=== PATIENT | female | born 1990 | race Caucasian/White ===

== ENCOUNTER 2017-01-04 21:43 | Emergency (ER) | payer OTHER ==
[~2017-01-04 21:43] MED LIST: ACET65TA OR; IBUP400T OR
[2017-01-04 22:34] LABS: MEAN CORPUSCULAR HEMOGLOBIN 32.4 pg (27.0-33.0); MEAN CORPUSCULAR HGB CONC 35.3 g/dl (32.0-36.5); MEAN CORPUSCULAR VOLUME 91.8 fl (80.0-96.0); RED CELL DISTRIBUTION WIDTH 14.1 % (11.5-14.5); WHITE BLOOD COUNT 7.1 K/mm3 (4.0-10.0)
[2017-01-04 22:36] LABS: CONTROL LINE INT CTR LINE PRESENT; METHADONE URINE NEGATIVE (NEGATIVE); TRICYCLIC ANTIDEPRESS URINE NEGATIVE (NEGATIVE)
[2017-01-04 22:41] LABS: CONTROL LINE HCG INT CTR LINE PRESENT
[2017-01-04 22:58] LABS: ALBUMIN 4.6 GM/DL (3.2-5.2); ALBUMIN/GLOBULIN RATIO 1.12 (1.00-1.93); ALKALINE PHOSPHATASE 72 U/L (45-117); ALT/SGPT 94 U/L (12-78); ANION GAP 13 MEQ/L (8-16); AST/SGOT 86 U/L (15-37); BILIRUBIN,DIRECT 0.3 MG/DL (0.0-0.2); BILIRUBIN,TOTAL 0.9 MG/DL (0.2-1.0); BLOOD UREA NITROGEN 9 MG/DL (7-18); CALCIUM LEVEL 8.3 MG/DL (8.5-10.1); CARBON DIOXIDE LEVEL 24 MEQ/L (21-32); CHLORIDE LEVEL 105 MEQ/L (98-107); CREATININE FOR GFR 0.71 MG/DL (0.55-1.02); GLOMERULAR FILTRATION RATE > 60.0 (>60); GLUCOSE, FASTING 88 MG/DL (70-105); SODIUM LEVEL 142 MEQ/L (136-145); TOTAL PROTEIN 8.7 GM/DL (6.4-8.2)
[2017-01-05] MEDS ORDERED: ONDANSETRON 4 MG ORAL DISINTEGRATING TAB (S0181) As Ordered ONE (00:24)
--- NOTE | 2017-01-05 00:42 | EDDOCDS ---
Nurse's Notes [facility] Name: Freda Moseley Age: 26 yrs Sex: Female : 1990 Arrival Date: 01/04/2017 Time: 21:43 Bed 31 Private MD: NO PRIMARY PHYSICIAN, . Diagnosis: Alcohol abuse with intoxication;Cannabis abuse Presentation: 01/04 21:50 Presenting complaint: Patient states: I'm here because I am drunk and I'm and alcoholic dsf and have lots of mental issues she wants us to detox then go up to mental health unit. pt denies SI or HI. Pt laughing and appears to be under the influence. pt states "you guys have the 72 hour hold use it cause I want to get better". Mental Health Triage Level: Not applicable. Adult Sepsis Screening: The patient does not have new or worsening altered mentation. Patient's respiratory rate is less than 22. Systolic blood pressure is greater than 100. Patient has a qSOFA score of 0- Negative Sepsis Screen. Suicide/Homicide risk assessment- the patient denies having any suicidal and/or homicidal ideations and does not present with any other emotional, behavioral or mental health complaints. Status: Patient is not a donor services technician or dependent. Transition of care: patient was not received from another setting of care. 21:50 Acuity: MARCIA Level 4 dsf 21:50 Method Of Arrival: Walkin/Carried/Asstd dsf Triage Assessment: 21:59 General: Appears in no apparent distress, Behavior is agitated, Smells of alcohol. dsf Pain: Denies pain. HIV screening NA for this visit Offered previously. [employer] TENDER: 21:59 LMP 12/14/2016 dsf Historical: - Allergies: nuvox (Hives); - Home Meds: 1. Seroquel 300 mg oral tab 1 tab 2 times per day (Last dose: Unknown) 2. Seroquel 200 mg Oral tab 1 tab once daily (Last dose: Unknown) 3. clonazepam 1 mg Oral tab 1 tab 3 times per day (Last dose: Unknown) - PMHx: Hepatitis C; IV drug use; Depression; Panic Attacks; - PSHx: cyst removed rt inner arm; Appendectomy; wisdom teeth; Tonsillectomy; Adenoidectomy; - The history from nurses notes was reviewed: but there are no nursing notes, or only partial notes available at the time of my charting. - Social history: Smoking status: Patient uses tobacco products, current every day smoker. Patient uses alcohol on a daily basis. 1 L hard liquor daily or 4 tall beers daily . No barriers to communication noted, The patient speaks fluent Slovenian, Speaks appropriately for age. - Hospitalizations: : No recent hospitalization is reported. - : The pt / caregiver states he / she is not on anticoagulants. Home medication list is obtained from friend. - Immunization history:: All immunizations up-to-date. - Exposure Risk Screening:: None identified. - Family history: Not pertinent. - Social history:: the patient smokes cigarettes the patient drinks alcohol, including recently, regularly to excess, the patient uses illicit drugs, including marijuana, opiates. Screenin/28 00:00 Screening information is obtained from the patient. Fall risk: No risks identified. rw1 Assistance ADL's: requires no assistance with activities of daily living. Abuse/DV Screen: The patient / caregiver reports he/she is: not in a situation that causes fear, pain or injury. Nutritional screening: No deficits noted. Advance Directives: Currently, there is no health care proxy. home support is adequate. Assessment: 01/04 21:59 General: see triage assessment. rw1 22:59 General: Appears in no apparent distress, comfortable, Behavior is appropriate for age, rw1 cooperative, pleasant. Pain: Denies pain. Neurological: Level of Consciousness is awake, alert, obeys commands, Oriented to person, place, time. Respiratory: Airway is patent Respiratory effort is even, unlabored. Derm: Skin is pink, warm & dry. normal. 01/05 00:00 Reassessment: Patient appears in no apparent distress at this time. Patient denies pain rw1 at this time. Patient states feeling better. Patient states symptoms have improved. 00:39 Reassessment: Patient appears in no apparent distress at this time. Patient denies pain rw1 at this time. Social Work Consult: 00:13 Social Work Note: PT brought to ED by her roommate and boyfriend. 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 PT first began abusing alcohol age 12. PT currently denies SI/HI or hallucinations and her roommate and her boyfriend are very supportive. PT states she does not need IMHU care but perhaps detox and she basically does not know where to go for care. Referral information provided and reviewed. Vital Signs: 01/04 21:46 BP 132 / 98; Pulse 105; Resp 19; Temp 96.7(T); Pulse Ox 98% on R/A; Weight 58.97 kg lr2 (R); Height 5 ft. 1 in. (154.94 cm); Pain 0/10; 01/05 00:39 BP 120 / 83; Pulse 89; Resp 18; Temp 97.6(O); Pulse Ox 96% on R/A; Pain 0/10; rw1 01/04 21:46 Body Mass Index 24.56 (58.97 kg, 154.94 cm) lr2 Vitals: 01/04 21:46 Log In Time: January 04, 2017 at 21:43. lr2 21:46 RN notified that patient meets Red Flag criteria. lr2 ED Course: 21:45 Patient visited by Luisa Avilez. lr2 21:45 Patient moved to Waiting lr2 21:47 NO PRIMARY PHYSICIAN, . is Private Physician. lr2 21:47 Patient moved to Pre RCE lr2 21:47 Patient moved to 31 cz 21:48 Chuck Medina MD is Attending Physician. pc 21:53 Triage Initiated dsf 21:58 Patient visited by Chuck Medina MD. pc 22:03 Brendan Sandoval LPN is Primary Nurse. rw1 22:26 Patient visited by Brendan Sandoval LPN. rw1 22:40 Patient visited by Donna Gillette PCA. werner 22:58 Patient visited by Donna Gillette PCA. werner 23:22 Patient visited by Donna Gillette PCA. werner 23:38 Patient visited by Donna Gillette PCA. werner 01/05 00:00 Patient visited by Brendan Sandoval LPN. rw1 00:00 The patient / caregiver is instructed regarding the plan of care and ED course. rw1 00:00 No IV's were initiated during this patient's visit. No procedures done that require rw1 assistance. 00:14 Referral list, As provided by PFS is Referral Physician. pc Administered Medications: 00:39 Drug: Ondansetron ODT 4 mg [ondansetron 4 mg disintegrating tablet (1 tabs)] Route: PO; rw1 00:39 Follow up: Response: Pt left department before re-evaluation is appropriate rw1 Order Results: Lab Order: Acetaminophen Level; SPEC'M 01/04/17 22:19 Test: ACETAMINOPHEN LEVEL; Value: < 2.0; Range: 10.0-30.0; Abnormal: Below low normal; Units: UG/ML; Status: F Lab Order: Basic Metabolic Profile; SPEC'M 01/04/17 22:19 Test: GLUCOSE, FASTING; Value: 88; Range: 70-105; Units: MG/DL; Status: F Test: BLOOD UREA NITROGEN; Value: 9; Range: 7-18; Units: MG/DL; Status: F Test: CREATININE FOR GFR; Value: 0.71; Range: 0.55-1.02; Units: MG/DL; Status: F Test: SODIUM LEVEL; Range: 136-145; Units: MEQ/L; Status: I Test: POTASSIUM SERUM; Range: 3.5-5.1; Units: MEQ/L; Status: I Test: CHLORIDE LEVEL; Range: 98-107; Units: MEQ/L; Status: I Test: CARBON DIOXIDE LEVEL; Range: 21-32; Units: MEQ/L; Status: I Test: ANION GAP; Range: 8-16; Units: MEQ/L; Status: I Test: CALCIUM LEVEL; Range: 8.5-10.1; Units: MG/DL; Status: I Test: GLOMERULAR FILTRATION RATE; Value: > 60.0; Range: >60; Status: F Test: SODIUM LEVEL; Value: 142; Range: 136-145; Units: MEQ/L; Status: F Test: POTASSIUM SERUM; Value: 4.0; Range: 3.5-5.1; Units: MEQ/L; Status: F Test: CHLORIDE LEVEL; Value: 105; Range: 98-107; Units: MEQ/L; Status: F Test: CARBON DIOXIDE LEVEL; Value: 24; Range: 21-32; Units: MEQ/L; Status: F Test: ANION GAP; Value: 13; Range: 8-16; Units: MEQ/L; Status: F Test: CALCIUM LEVEL; Value: 8.3; Range: 8.5-10.1; Abnormal: Below low normal; Units: MG/DL; Status: F Test Note: ; Units are mL/min/1.73 m2 Chronic Kidney Disease Staging per NKF: Stage I & II GFR >=60 Normal to Mildly Decreased Stage III GFR 30-59 Moderately Decreased Stage IV GFR 15-29 Severely Decreased Stage V GFR <15 Very Little GFR Left ESRD GFR <15 on [facility] Lab Order: Complete Blood Count; SPEC'M 01/04/17 22:19 Test: WHITE BLOOD COUNT; Value: 7.1; Range: 4.0-10.0; Units: K/mm3; Status: F Test: RED BLOOD COUNT; Value: 4.75; Range: 4.00-5.40; Units: M/mm3; Status: F Test: HEMOGLOBIN; Value: 15.4; Range: 12.0-16.0; Units: g/dl; Status: F Test: HEMATOCRIT; Value: 43.6; Range: 36.0-47.0; Units: %; Status: F Test: MEAN CORPUSCULAR VOLUME; Value: 91.8; Range: 80.0-96.0; Units: fl; Status: F Test: MEAN CORPUSCULAR HEMOGLOBIN; Value: 32.4; Range: 27.0-33.0; Units: pg; Status: F Test: MEAN CORPUSCULAR HGB CONC; Value: 35.3; Range: 32.0-36.5; Units: g/dl; Status: F Test: RED CELL DISTRIBUTION WIDTH; Value: 14.1; Range: 11.5-14.5; Units: %; Status: F Test: PLATELET COUNT, AUTOMATED; Value: 124; Range: 150-450; Abnormal: Below low normal; Units: k/mm3; Status: F Lab Order: Drug Eval Toxicology ED Only; SPEC'M 01/04/17 22:19 Test: AMPHETAMINES LEVEL URINE; Value: NEGATIVE; Range: NEGATIVE; Status: F Test: BARBITURATES URINE; Value: NEGATIVE; Range: NEGATIVE; Status: F Test: BENZODIAZEPINES URINE; Value: NEGATIVE; Range: NEGATIVE; Status: F Test: CANNABINOIDS URINE; Value: POSITIVE; Range: NEGATIVE; Abnormal: Above high normal; Status: F Test: COCAINE METABOLITE URINE; Value: NEGATIVE; Range: NEGATIVE; Status: F Test: METHADONE URINE; Value: NEGATIVE; Range: NEGATIVE; Status: F Test: OPIATES URINE; Value: NEGATIVE; Range: NEGATIVE; Status: F Test: TRICYCLIC ANTIDEPRESS URINE; Value: NEGATIVE; Range: NEGATIVE; Status: F Test Note: ; FALSE POSITIVE RESULTS CAN BE CAUSED BY THE USE OF PANTOPRAZOLE (PROTONIX). Lab Order: Ethyl Alcohol (ethanol); SPEC' 01/04/17 22:19 Test: ETHYL ALCOHOL (ETHANOL); Value: 0.348; Range: 0.000-0.010; Abnormal: Above high normal; Units: %; Status: F Lab Order: HCG,Serum Qualitative; SPEC' 01/04/17 22:19 Test: HCG, SERUM QUALITATIVE; Value: NEGATIVE; Range: NEGATIVE; Status: F Lab Order: Liver Profile; [facility]' 01/04/17 22:19 Test: AST/SGOT; Value: 86; Range: 15-37; Abnormal: Above high normal; Units: U/L; Status: F Test: ALT/SGPT; Value: 94; Range: 12-78; Abnormal: Above high normal; Units: U/L; Status: F Test: ALKALINE PHOSPHATASE; Value: 72; Range: 45-117; Units: U/L; Status: F Test: BILIRUBIN,TOTAL; Value: 0.9; Range: 0.2-1.0; Units: MG/DL; Status: F Test: BILIRUBIN,DIRECT; Value: 0.3; Range: 0.0-0.2; Abnormal: Above high normal; Units: MG/DL; Status: F Test: TOTAL PROTEIN; Value: 8.7; Range: 6.4-8.2; Abnormal: Above high normal; Units: GM/DL; Status: F Test: ALBUMIN; Value: 4.6; Range: 3.2-5.2; Units: GM/DL; Status: F Test: ALBUMIN/GLOBULIN RATIO; Value: 1.12; Range: 1.00-1.93; Status: F Lab Order: Salicylate Level; SPEC' 01/04/17 22:19 Test: SALICYLATE LEVEL; Value: 3.6; Range: 5.0-30.0; Abnormal: Below low normal; Units: MG/DL; Status: F Lab Order: Thyroid Stimulating Hormone; SPEC' 01/04/17 22:19 Test: THYROID STIMULATING HORMONE; Value: 0.907; Range: 0.358-3.740; Units: uIU/ML; Status: F Outcome: 00:00 No special radiology studies were completed. rw1 00:14 Discharge ordered by Provider. 00:39 Discharge Assessment: Patient awake, alert and oriented x 3. No cognitive and/or rw1 functional deficits noted. Patient verbalized understanding of disposition instructions. patient administered narcotics - no. The following High Risk Discharge criteria are identified: Yes, Pt was d/c'd with family home to follow up outpatient.. Condition: stable. Property sent home with patient. 00:42 Patient left the ED. rw1 Signatures: Chuck Medina MD MD pc Zecher, Calvin, RN RN Brendan Lilly LPN LPN rw1 Ivory Chun, PAULO PSA Donan Hendrickson, Tiffani Jay,RN RN Luisa Dasilva lr2 HORACIO
--- NOTE | 2017-01-05 00:42 | EDDOCDS ---
Physician Documentation [facility] Name: Freda Moseley Age: 26 yrs Sex: Female : 1990 Arrival Date: 01/04/2017 Time: 21:43 Bed 31 Private MD: NO PRIMARY PHYSICIAN, . Disposition: 01/05 00:13 Critical Care: Critical care not applicable. pc Disposition: 01/05/17 00:14 Discharged to Home/Self Care. Impression: Alcohol abuse with intoxication, Cannabis abuse. - Condition is Stable. - Discharge Instructions: Alcohol Intoxication. - Medication Reconciliation, Local Pharmacy Hours form. - Follow up: Referral list, As provided by PFS; When: Call to arrange an appointment; Reason: To establish care. - Problem is chronic. - Symptoms are unchanged. HPI: 01/04 21:51 This 26 yrs old Female presents to ER with complaints of ETOH Abuse. pc 21:51 The history is obtained from the patient, the patient's family/friend. A reliable pc history and/or examination was not able to be obtained, due to the patient's level of intoxication. She is intoxicated, with a long history of alcohol and drug abuse, who presents with friends, requesting to talk to PFS for help with her alcoholism. There is no report of SI or HI. The patient has experienced similar episodes in the past, chronically. The patient has not recently seen a physician. Historical: - Allergies: nuvox (Hives); - Home Meds: 1. Seroquel 300 mg oral tab 1 tab 2 times per day (Last dose: Unknown) 2. Seroquel 200 mg Oral tab 1 tab once daily (Last dose: Unknown) 3. clonazepam 1 mg Oral tab 1 tab 3 times per day (Last dose: Unknown) - PMHx: Hepatitis C; IV drug use; Depression; Panic Attacks; - PSHx: cyst removed rt inner arm; Appendectomy; wisdom teeth; Tonsillectomy; Adenoidectomy; - The history from nurses notes was reviewed: but there are no nursing notes, or only partial notes available at the time of my charting. - Social history: Smoking status: Patient uses tobacco products, current every day smoker. Patient uses alcohol on a daily basis. 1 L hard liquor daily or 4 tall beers daily . No barriers to communication noted, The patient speaks fluent Greenlandic, Speaks appropriately for age. - Hospitalizations: : No recent hospitalization is reported. - : The pt / caregiver states he / she is not on anticoagulants. Home medication list is obtained from friend. - Immunization history:: All immunizations up-to-date. - Exposure Risk Screening:: None identified. - Family history: Not pertinent. - Social history:: the patient smokes cigarettes the patient drinks alcohol, including recently, regularly to excess, the patient uses illicit drugs, including marijuana, opiates. PATIENT CARE PROVIDER: 21:59 LMP 12/14/2016 dsf ROS: 21:51 All systems are negative except as listed. pc Exam: 21:51 General Appearance: alert, highly intoxicated, requiring assistance to stand, slurring pc her speech. 21:51 EENT: normal eye inspection, ears, nose and throat normal, pharynx normal, mucous membranes moist 21:51 Neck: The exam reveals no acute abnormalities. ROM is normal and painless. No nuchal rigidity is noted.. 21:51 Respiratory: no respiratory distress, normal breath sounds. 21:51 CVS: regular pulse rate, regular rhythm, normal S1 and S2, no murmurs, strong peripheral pulses. 21:51 Abdomen: soft, non-tender, no organomegaly, normal bowel sounds. 21:51 Back: normal inspection. 21:51 Skin: skin color is normal, warm, dry. 21:51 Extremities: The extremities have a grossly normal appearance, are non-tender, without acute ROM abnormalities. 21:51 Neuro: oriented x 3, cranial nerves normal as tested, no motor deficits, no sensory deficits. 21:51 Psych: normal mood. Vital Signs: 21:46 BP 132 / 98; Pulse 105; Resp 19; Temp 96.7(T); Pulse Ox 98% on R/A; Weight 58.97 kg / lr2 130.01 lbs (R); Height 5 ft. 1 in. (154.94 cm); Pain 0/10; 01/05 00:39 BP 120 / 83; Pulse 89; Resp 18; Temp 97.6(O); Pulse Ox 96% on R/A; Pain 0/10; rw1 01/04 21:46 Body Mass Index 24.56 (58.97 kg, 154.94 cm) lr2 MDM: 01/04 21:51 Differential Diagnosis: alcohol intoxication, history of substance abuse. Plan: labs, pc PFS eval. 21:58 Consult PFS/PSA/Mixer Wet Pour ordered. pc 21:59 Acetaminophen Level Ordered. EDMS 21:59 Basic Metabolic Profile Ordered. EDMS 21:59 Complete Blood Count Ordered. EDMS 21:59 Drug Eval Toxicology ED Only Ordered. EDMS 21:59 Ethyl Alcohol (ethanol) Ordered. EDMS 21:59 HCG,Serum Qualitative Ordered. EDMS 21:59 Liver Profile Ordered. EDMS 21:59 Salicylate Level Ordered. EDMS 21:59 Thyroid Stimulating Hormone Ordered. EDMS 22:51 Complete Blood Count Reviewed. pc 22:51 Drug Eval Toxicology ED Only Reviewed. pc 22:51 HCG,Serum Qualitative Reviewed. pc 23:00 Acetaminophen Level Reviewed. pc 23:00 Basic Metabolic Profile Reviewed. pc 23:00 Ethyl Alcohol (ethanol) Reviewed. pc 23:00 Liver Profile Reviewed. pc 23:00 Salicylate Level Reviewed. pc 23:00 HCG,Serum Qualitative Reviewed. pc 23:00 Thyroid Stimulating Hormone Reviewed. pc 23:51 Financial registration complete. [facility] 01/05 00:13 Consult PFS/PSA/Mixer Wet Pour complete. jfb 00:13 Data reviewed: old medical records, vital signs, nurses notes, lab test results. Test pc interpretation: LAB - all labs as ordered have been reviewed, interpreted and considered in the overall management of the clinical presentation;. The patient has been re-examined and re-evaluated. The patient's symptoms have mildly improved after treatment. Other consultation: The ED site worker was notified and will evaluate the patient. 00:13 Disposition: The historical points, examination findings, and any diagnostic results pc supporting the provided diagnosis, were discussed with the patient or legal guardian. The need for outpatient follow up with the provider listed on their discharge instructions was discussed. They were encouraged to return to [facility], or the nearest ED, if symptoms worsen/persist, or for any other questions/concerns. 00:23 Ondansetron ODT Oral Disintegrating Tablet 4 mg PO once ordered. rw1 Administered Medications: 00:39 Drug: Ondansetron ODT 4 mg [ondansetron 4 mg disintegrating tablet (1 tabs)] Route: PO; rw1 00:39 Follow up: Response: Pt left department before re-evaluation is appropriate rw1 Signatures: Dispatcher [employer] EDMS Chuck Medina MD MD pc Workman, Robert, LPN LPN rw1 Ivory Chun, PSA PSA Tiffani Aguilar,RN RN Gale Fernandez MTDD
--- NOTE | 2017-01-07 01:43 | EDDOCDS ---
Physician Documentation [facility] Name: Freda Moseley Age: 26 yrs Sex: Female : 1990 Arrival Date: 01/04/2017 Time: 21:43 Bed 31 Private MD: NO PRIMARY PHYSICIAN, . Disposition: 01/05 00:13 Critical Care: Critical care not applicable. pc Disposition: 01/05/17 00:14 Discharged to Home/Self Care. Impression: Alcohol abuse with intoxication, Cannabis abuse. - Condition is Stable. - Discharge Instructions: Alcohol Intoxication. - Medication Reconciliation, Local Pharmacy Hours form. - Follow up: Referral list, As provided by PFS; When: Call to arrange an appointment; Reason: To establish care. - Problem is chronic. - Symptoms are unchanged. HPI: 01/04 21:51 This 26 yrs old Female presents to ER with complaints of ETOH Abuse. pc 21:51 The history is obtained from the patient, the patient's family/friend. A reliable pc history and/or examination was not able to be obtained, due to the patient's level of intoxication. She is intoxicated, with a long history of alcohol and drug abuse, who presents with friends, requesting to talk to PFS for help with her alcoholism. There is no report of SI or HI. The patient has experienced similar episodes in the past, chronically. The patient has not recently seen a physician. Historical: - Allergies: nuvox (Hives); - Home Meds: 1. Seroquel 300 mg oral tab 1 tab 2 times per day (Last dose: Unknown) 2. Seroquel 200 mg Oral tab 1 tab once daily (Last dose: Unknown) 3. clonazepam 1 mg Oral tab 1 tab 3 times per day (Last dose: Unknown) - PMHx: Hepatitis C; IV drug use; Depression; Panic Attacks; - PSHx: cyst removed rt inner arm; Appendectomy; wisdom teeth; Tonsillectomy; Adenoidectomy; - The history from nurses notes was reviewed: but there are no nursing notes, or only partial notes available at the time of my charting. - Social history: Smoking status: Patient uses tobacco products, current every day smoker. Patient uses alcohol on a daily basis. 1 L hard liquor daily or 4 tall beers daily . No barriers to communication noted, The patient speaks fluent Syriac, Speaks appropriately for age. - Hospitalizations: : No recent hospitalization is reported. - : The pt / caregiver states he / she is not on anticoagulants. Home medication list is obtained from friend. - Immunization history:: All immunizations up-to-date. - Exposure Risk Screening:: None identified. - Family history: Not pertinent. - Social history:: the patient smokes cigarettes the patient drinks alcohol, including recently, regularly to excess, the patient uses illicit drugs, including marijuana, opiates. 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 pc Exam: 21:51 General Appearance: alert, highly intoxicated, requiring assistance to stand, slurring pc her speech. 21:51 EENT: normal eye inspection, ears, nose and throat normal, pharynx normal, mucous membranes moist 21:51 Neck: The exam reveals no acute abnormalities. ROM is normal and painless. No nuchal rigidity is noted.. 21:51 Respiratory: no respiratory distress, normal breath sounds. 21:51 CVS: regular pulse rate, regular rhythm, normal S1 and S2, no murmurs, strong peripheral pulses. 21:51 Abdomen: soft, non-tender, no organomegaly, normal bowel sounds. 21:51 Back: normal inspection. 21:51 Skin: skin color is normal, warm, dry. 21:51 Extremities: The extremities have a grossly normal appearance, are non-tender, without acute ROM abnormalities. 21:51 Neuro: oriented x 3, cranial nerves normal as tested, no motor deficits, no sensory deficits. 21:51 Psych: normal mood. Vital Signs: 21:46 BP 132 / 98; Pulse 105; Resp 19; Temp 96.7(T); Pulse Ox 98% on R/A; Weight 58.97 kg / lr2 130.01 lbs (R); Height 5 ft. 1 in. (154.94 cm); Pain 0/10; 01/05 00:39 BP 120 / 83; Pulse 89; Resp 18; Temp 97.6(O); Pulse Ox 96% on R/A; Pain 0/10; rw1 01/04 21:46 Body Mass Index 24.56 (58.97 kg, 154.94 cm) lr2 MDM: 01/04 21:51 Differential Diagnosis: alcohol intoxication, history of substance abuse. Plan: labs, pc PFS eval. 21:58 Consult PFS/PSA/Working Supervisor ordered. pc 21:59 Acetaminophen Level Ordered. EDMS 21:59 Basic Metabolic Profile Ordered. EDMS 21:59 Complete Blood Count Ordered. EDMS 21:59 Drug Eval Toxicology ED Only Ordered. EDMS 21:59 Ethyl Alcohol (ethanol) Ordered. EDMS 21:59 HCG,Serum Qualitative Ordered. EDMS 21:59 Liver Profile Ordered. EDMS 21:59 Salicylate Level Ordered. EDMS 21:59 Thyroid Stimulating Hormone Ordered. EDMS 22:51 Complete Blood Count Reviewed. pc 22:51 Drug Eval Toxicology ED Only Reviewed. pc 22:51 HCG,Serum Qualitative Reviewed. pc 23:00 Acetaminophen Level Reviewed. pc 23:00 Basic Metabolic Profile Reviewed. pc 23:00 Ethyl Alcohol (ethanol) Reviewed. pc 23:00 Liver Profile Reviewed. pc 23:00 Salicylate Level Reviewed. pc 23:00 HCG,Serum Qualitative Reviewed. pc 23:00 Thyroid Stimulating Hormone Reviewed. pc 23:51 Financial registration complete. [facility] 01/05 00:13 Consult PFS/PSA/Working Supervisor complete. jfb 00:13 Data reviewed: old medical records, vital signs, nurses notes, lab test results. Test pc interpretation: LAB - all labs as ordered have been reviewed, interpreted and considered in the overall management of the clinical presentation;. The patient has been re-examined and re-evaluated. The patient's symptoms have mildly improved after treatment. Other consultation: The ED asbestos worker helper was notified and will evaluate the patient. 00:13 Disposition: The historical points, examination findings, and any diagnostic results pc supporting the provided diagnosis, were discussed with the patient or legal guardian. The need for outpatient follow up with the provider listed on their discharge instructions was discussed. They were encouraged to return to [facility], or the nearest ED, if symptoms worsen/persist, or for any other questions/concerns. 00:23 Ondansetron ODT Oral Disintegrating Tablet 4 mg PO once ordered. [facility] 01:19 [place] Payment Agreement was scanned into [employer] and attached to record. [facility] 01:42 PSA Outpatient Referrals was scanned into [employer] and attached to record. sasha Administered Medications: 00:39 Drug: Ondansetron ODT 4 mg [ondansetron 4 mg disintegrating tablet (1 tabs)] Route: PO; rw1 00:39 Follow up: Response: Pt left department before re-evaluation is appropriate rw1 Signatures: Dispatcher [employer] Chuck Nielson MD MD pc Workman, Robert, LPN LPN rw1 Ivory Chun PSA PSA jfb Fuller, Desiree,RN RN Dickson HunterRN RN Gale Amos [facility] The chart was reviewed and I authenticate all verbal orders and agree with the evaluation and treatment provided.Attachments: 01:19 [facility] Payment Agreement [facility] Chart Complete MTDD
--- NOTE | 2017-01-07 01:43 | EDDOCDS ---
Nurse's Notes [facility] Name: Freda Moseley Age: 26 yrs Sex: Female : 1990 Arrival Date: 01/04/2017 Time: 21:43 Bed 31 Private MD: NO PRIMARY PHYSICIAN, . Diagnosis: Alcohol abuse with intoxication;Cannabis abuse Presentation: 01/04 21:50 Presenting complaint: Patient states: I'm here because I am drunk and I'm and alcoholic dsf and have lots of mental issues she wants us to detox then go up to mental health unit. pt denies SI or HI. Pt laughing and appears to be under the influence. pt states "you guys have the 72 hour hold use it cause I want to get better". Mental Health Triage Level: Not applicable. Adult Sepsis Screening: The patient does not have new or worsening altered mentation. Patient's respiratory rate is less than 22. Systolic blood pressure is greater than 100. Patient has a qSOFA score of 0- Negative Sepsis Screen. Suicide/Homicide risk assessment- the patient denies having any suicidal and/or homicidal ideations and does not present with any other emotional, behavioral or mental health complaints. Status: Patient is not a business services analyst or dependent. Transition of care: patient was not received from another setting of care. 21:50 Acuity: MARCIA Level 4 dsf 21:50 Method Of Arrival: Walkin/Carried/Asstd dsf Triage Assessment: 21:59 General: Appears in no apparent distress, Behavior is agitated, Smells of alcohol. dsf Pain: Denies pain. HIV screening NA for this visit Offered previously. 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 Seroquel 300 mg oral tab 1 tab 2 times per day (Last dose: Unknown) 2. Seroquel 200 mg Oral tab 1 tab once daily (Last dose: Unknown) 3. clonazepam 1 mg Oral tab 1 tab 3 times per day (Last dose: Unknown) - PMHx: Hepatitis C; IV drug use; Depression; Panic Attacks; - PSHx: cyst removed rt inner arm; Appendectomy; wisdom teeth; Tonsillectomy; Adenoidectomy; - The history from nurses notes was reviewed: but there are no nursing notes, or only partial notes available at the time of my charting. - Social history: Smoking status: Patient uses tobacco products, current every day smoker. Patient uses alcohol on a daily basis. 1 L hard liquor daily or 4 tall beers daily . No barriers to communication noted, The patient speaks fluent Italian, Speaks appropriately for age. - Hospitalizations: : No recent hospitalization is reported. - : The pt / caregiver states he / she is not on anticoagulants. Home medication list is obtained from friend. - Immunization history:: All immunizations up-to-date. - Exposure Risk Screening:: None identified. - Family history: Not pertinent. - Social history:: the patient smokes cigarettes the patient drinks alcohol, including recently, regularly to excess, the patient uses illicit drugs, including marijuana, opiates. Screenin/28 00:00 Screening information is obtained from the patient. Fall risk: No risks identified. rw1 Assistance ADL's: requires no assistance with activities of daily living. Abuse/DV Screen: The patient / caregiver reports he/she is: not in a situation that causes fear, pain or injury. Nutritional screening: No deficits noted. Advance Directives: Currently, there is no health care proxy. home support is adequate. Assessment: 01/04 21:59 General: see triage assessment. rw1 22:59 General: Appears in no apparent distress, comfortable, Behavior is appropriate for age, rw1 cooperative, pleasant. Pain: Denies pain. Neurological: Level of Consciousness is awake, alert, obeys commands, Oriented to person, place, time. Respiratory: Airway is patent Respiratory effort is even, unlabored. Derm: Skin is pink, warm & dry. normal. 01/05 00:00 Reassessment: Patient appears in no apparent distress at this time. Patient denies pain rw1 at this time. Patient states feeling better. Patient states symptoms have improved. 00:39 Reassessment: Patient appears in no apparent distress at this time. Patient denies pain rw1 at this time. Social Work Consult: 00:13 Social Work Note: PT brought to ED by her roommate and boyfriend. 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 PT first began abusing alcohol age 12. PT currently denies SI/HI or hallucinations and her roommate and her boyfriend are very supportive. PT states she does not need IMHU care but perhaps detox and she basically does not know where to go for care. Referral information provided and reviewed. Vital Signs: 01/04 21:46 BP 132 / 98; Pulse 105; Resp 19; Temp 96.7(T); Pulse Ox 98% on R/A; Weight 58.97 kg lr2 (R); Height 5 ft. 1 in. (154.94 cm); Pain 0/10; 01/05 00:39 BP 120 / 83; Pulse 89; Resp 18; Temp 97.6(O); Pulse Ox 96% on R/A; Pain 0/10; rw1 01/04 21:46 Body Mass Index 24.56 (58.97 kg, 154.94 cm) lr2 Vitals: 01/04 21:46 Log In Time: January 04, 2017 at 21:43. lr2 21:46 RN notified that patient meets Red Flag criteria. lr2 ED Course: 21:45 Patient visited by Luisa Avilez. lr2 21:45 Patient moved to Waiting lr2 21:47 NO PRIMARY PHYSICIAN, . is Private Physician. lr2 21:47 Patient moved to Pre RCE lr2 21:47 Patient moved to 31 cz 21:48 Chuck Medina MD is Attending Physician. pc 21:53 Triage Initiated dsf 21:58 Patient visited by Chuck Medina MD. pc 22:03 Brendan Sandoval LPN is Primary Nurse. rw1 22:26 Patient visited by Brendan Sandoval LPN. rw1 22:40 Patient visited by Donna Gillette PCA. werner 22:58 Patient visited by Donna Gillette PCA. werner 23:22 Patient visited by Donna Gillette PCA. werner 23:38 Patient visited by Donna Gillette PCA. werner 01/05 00:00 Patient visited by Brendan Sandoval LPN. rw1 00:00 The patient / caregiver is instructed regarding the plan of care and ED course. rw1 00:00 No IV's were initiated during this patient's visit. No procedures done that require rw1 assistance. 00:14 Referral list, As provided by PFS is Referral Physician. pc 01:19 [facility] Payment Agreement was scanned into [employer] and attached to record. [facility] 01:42 PSA Outpatient Referrals was scanned into [employer] and attached to record. jdb Administered Medications: 00:39 Drug: Ondansetron ODT 4 mg [ondansetron 4 mg disintegrating tablet (1 tabs)] Route: PO; rw1 00:39 Follow up: Response: Pt left department before re-evaluation is appropriate rw1 Order Results: Lab Order: Acetaminophen Level; SPEC'M 01/04/17 22:19 Test: ACETAMINOPHEN LEVEL; Value: < 2.0; Range: 10.0-30.0; Abnormal: Below low normal; Units: UG/ML; Status: F Lab Order: Basic Metabolic Profile; SPEC'M 01/04/17 22:19 Test: GLUCOSE, FASTING; Value: 88; Range: 70-105; Units: MG/DL; Status: F Test: BLOOD UREA NITROGEN; Value: 9; Range: 7-18; Units: MG/DL; Status: F Test: CREATININE FOR GFR; Value: 0.71; Range: 0.55-1.02; Units: MG/DL; Status: F Test: SODIUM LEVEL; Range: 136-145; Units: MEQ/L; Status: I Test: POTASSIUM SERUM; Range: 3.5-5.1; Units: MEQ/L; Status: I Test: CHLORIDE LEVEL; Range: 98-107; Units: MEQ/L; Status: I Test: CARBON DIOXIDE LEVEL; Range: 21-32; Units: MEQ/L; Status: I Test: ANION GAP; Range: 8-16; Units: MEQ/L; Status: I Test: CALCIUM LEVEL; Range: 8.5-10.1; Units: MG/DL; Status: I Test: GLOMERULAR FILTRATION RATE; Value: > 60.0; Range: >60; Status: F Test: SODIUM LEVEL; Value: 142; Range: 136-145; Units: MEQ/L; Status: F Test: POTASSIUM SERUM; Value: 4.0; Range: 3.5-5.1; Units: MEQ/L; Status: F Test: CHLORIDE LEVEL; Value: 105; Range: 98-107; Units: MEQ/L; Status: F Test: CARBON DIOXIDE LEVEL; Value: 24; Range: 21-32; Units: MEQ/L; Status: F Test: ANION GAP; Value: 13; Range: 8-16; Units: MEQ/L; Status: F Test: CALCIUM LEVEL; Value: 8.3; Range: 8.5-10.1; Abnormal: Below low normal; Units: MG/DL; Status: F Test Note: ; Units are mL/min/1.73 m2 Chronic Kidney Disease Staging per NKF: Stage I & II GFR >=60 Normal to Mildly Decreased Stage III GFR 30-59 Moderately Decreased Stage IV GFR 15-29 Severely Decreased Stage V GFR <15 Very Little GFR Left ESRD GFR <15 on SANDBLAST OR SHOTBLAST EQUIPMENT TENDER Lab Order: Complete Blood Count; SPEC'M 01/04/17 22:19 Test: WHITE BLOOD COUNT; Value: 7.1; Range: 4.0-10.0; Units: K/mm3; Status: F Test: RED BLOOD COUNT; Value: 4.75; Range: 4.00-5.40; Units: M/mm3; Status: F Test: HEMOGLOBIN; Value: 15.4; Range: 12.0-16.0; Units: g/dl; Status: F Test: HEMATOCRIT; Value: 43.6; Range: 36.0-47.0; Units: %; Status: F Test: MEAN CORPUSCULAR VOLUME; Value: 91.8; Range: 80.0-96.0; Units: fl; Status: F Test: MEAN CORPUSCULAR HEMOGLOBIN; Value: 32.4; Range: 27.0-33.0; Units: pg; Status: F Test: MEAN CORPUSCULAR HGB CONC; Value: 35.3; Range: 32.0-36.5; Units: g/dl; Status: F Test: RED CELL DISTRIBUTION WIDTH; Value: 14.1; Range: 11.5-14.5; Units: %; Status: F Test: PLATELET COUNT, AUTOMATED; Value: 124; Range: 150-450; Abnormal: Below low normal; Units: k/mm3; Status: F Lab Order: Drug Eval Toxicology ED Only; SPEC'M 01/04/17 22:19 Test: AMPHETAMINES LEVEL URINE; Value: NEGATIVE; Range: NEGATIVE; Status: F Test: BARBITURATES URINE; Value: NEGATIVE; Range: NEGATIVE; Status: F Test: BENZODIAZEPINES URINE; Value: NEGATIVE; Range: NEGATIVE; Status: F Test: CANNABINOIDS URINE; Value: POSITIVE; Range: NEGATIVE; Abnormal: Above high normal; Status: F Test: COCAINE METABOLITE URINE; Value: NEGATIVE; Range: NEGATIVE; Status: F Test: METHADONE URINE; Value: NEGATIVE; Range: NEGATIVE; Status: F Test: OPIATES URINE; Value: NEGATIVE; Range: NEGATIVE; Status: F Test: TRICYCLIC ANTIDEPRESS URINE; Value: NEGATIVE; Range: NEGATIVE; Status: F Test Note: ; FALSE POSITIVE RESULTS CAN BE CAUSED BY THE USE OF PANTOPRAZOLE (PROTONIX). Lab Order: Ethyl Alcohol (ethanol); SPEC' 01/04/17 22:19 Test: ETHYL ALCOHOL (ETHANOL); Value: 0.348; Range: 0.000-0.010; Abnormal: Above high normal; Units: %; Status: F Lab Order: HCG,Serum Qualitative; SPEC' 01/04/17 22:19 Test: HCG, SERUM QUALITATIVE; Value: NEGATIVE; Range: NEGATIVE; Status: F Lab Order: Liver Profile; [facility] 01/04/17 22:19 Test: AST/SGOT; Value: 86; Range: 15-37; Abnormal: Above high normal; Units: U/L; Status: F Test: ALT/SGPT; Value: 94; Range: 12-78; Abnormal: Above high normal; Units: U/L; Status: F Test: ALKALINE PHOSPHATASE; Value: 72; Range: 45-117; Units: U/L; Status: F Test: BILIRUBIN,TOTAL; Value: 0.9; Range: 0.2-1.0; Units: MG/DL; Status: F Test: BILIRUBIN,DIRECT; Value: 0.3; Range: 0.0-0.2; Abnormal: Above high normal; Units: MG/DL; Status: F Test: TOTAL PROTEIN; Value: 8.7; Range: 6.4-8.2; Abnormal: Above high normal; Units: GM/DL; Status: F Test: ALBUMIN; Value: 4.6; Range: 3.2-5.2; Units: GM/DL; Status: F Test: ALBUMIN/GLOBULIN RATIO; Value: 1.12; Range: 1.00-1.93; Status: F Lab Order: Salicylate Level; SPEC 01/04/17 22:19 Test: SALICYLATE LEVEL; Value: 3.6; Range: 5.0-30.0; Abnormal: Below low normal; Units: MG/DL; Status: F Lab Order: Thyroid Stimulating Hormone; SPEC'M 01/04/17 22:19 Test: THYROID STIMULATING HORMONE; Value: 0.907; Range: 0.358-3.740; Units: uIU/ML; Status: F Outcome: 00:00 No special radiology studies were completed. rw1 00:14 Discharge ordered by Provider. 00:39 Discharge Assessment: Patient awake, alert and oriented x 3. No cognitive and/or rw1 functional deficits noted. Patient verbalized understanding of disposition instructions. patient administered narcotics - no. The following High Risk Discharge criteria are identified: Yes, Pt was d/c'd with family home to follow up outpatient.. Condition: stable. Property sent home with patient. 00:42 Patient left the ED. rw1 Signatures: Chuck Medina MD MD pc Zecher, Calvin, RN RN Brendan Lilly LPN LPN rw1 Ivory Chun, PSA PSA Donna Hendrickson, Tiffani Jay,RN RN Dickson Hunter RN RN Gale Amos Laura lr2 Chart Complete MTDJean Claude
--- NOTE | 2017-01-07 01:43 | EDDOCDS ---
Physician Documentation [facility] Name: Freda Moseley Age: 26 yrs Sex: Female : 1990 Arrival Date: 01/04/2017 Time: 21:43 Bed 31 Private MD: NO PRIMARY PHYSICIAN, . Disposition: 01/05 00:13 Critical Care: Critical care not applicable. pc Disposition: 01/05/17 00:14 Discharged to Home/Self Care. Impression: Alcohol abuse with intoxication, Cannabis abuse. - Condition is Stable. - Discharge Instructions: Alcohol Intoxication. - Medication Reconciliation, Local Pharmacy Hours form. - Follow up: Referral list, As provided by PFS; When: Call to arrange an appointment; Reason: To establish care. - Problem is chronic. - Symptoms are unchanged. HPI: 01/04 21:51 This 26 yrs old Female presents to ER with complaints of ETOH Abuse. pc 21:51 The history is obtained from the patient, the patient's family/friend. A reliable pc history and/or examination was not able to be obtained, due to the patient's level of intoxication. She is intoxicated, with a long history of alcohol and drug abuse, who presents with friends, requesting to talk to PFS for help with her alcoholism. There is no report of SI or HI. The patient has experienced similar episodes in the past, chronically. The patient has not recently seen a physician. Historical: - Allergies: nuvox (Hives); - Home Meds: 1. Seroquel 300 mg oral tab 1 tab 2 times per day (Last dose: Unknown) 2. Seroquel 200 mg Oral tab 1 tab once daily (Last dose: Unknown) 3. clonazepam 1 mg Oral tab 1 tab 3 times per day (Last dose: Unknown) - PMHx: Hepatitis C; IV drug use; Depression; Panic Attacks; - PSHx: cyst removed rt inner arm; Appendectomy; wisdom teeth; Tonsillectomy; Adenoidectomy; - The history from nurses notes was reviewed: but there are no nursing notes, or only partial notes available at the time of my charting. - Social history: Smoking status: Patient uses tobacco products, current every day smoker. Patient uses alcohol on a daily basis. 1 L hard liquor daily or 4 tall beers daily . No barriers to communication noted, The patient speaks fluent Maltese, Speaks appropriately for age. - Hospitalizations: : No recent hospitalization is reported. - : The pt / caregiver states he / she is not on anticoagulants. Home medication list is obtained from friend. - Immunization history:: All immunizations up-to-date. - Exposure Risk Screening:: None identified. - Family history: Not pertinent. - Social history:: the patient smokes cigarettes the patient drinks alcohol, including recently, regularly to excess, the patient uses illicit drugs, including marijuana, opiates. [employer]: 21:59 LMP 12/14/2016 dsf ROS: 21:51 All systems are negative except as listed. pc Exam: 21:51 General Appearance: alert, highly intoxicated, requiring assistance to stand, slurring pc her speech. 21:51 EENT: normal eye inspection, ears, nose and throat normal, pharynx normal, mucous membranes moist 21:51 Neck: The exam reveals no acute abnormalities. ROM is normal and painless. No nuchal rigidity is noted.. 21:51 Respiratory: no respiratory distress, normal breath sounds. 21:51 CVS: regular pulse rate, regular rhythm, normal S1 and S2, no murmurs, strong peripheral pulses. 21:51 Abdomen: soft, non-tender, no organomegaly, normal bowel sounds. 21:51 Back: normal inspection. 21:51 Skin: skin color is normal, warm, dry. 21:51 Extremities: The extremities have a grossly normal appearance, are non-tender, without acute ROM abnormalities. 21:51 Neuro: oriented x 3, cranial nerves normal as tested, no motor deficits, no sensory deficits. 21:51 Psych: normal mood. Vital Signs: 21:46 BP 132 / 98; Pulse 105; Resp 19; Temp 96.7(T); Pulse Ox 98% on R/A; Weight 58.97 kg / lr2 130.01 lbs (R); Height 5 ft. 1 in. (154.94 cm); Pain 0/10; 01/05 00:39 BP 120 / 83; Pulse 89; Resp 18; Temp 97.6(O); Pulse Ox 96% on R/A; Pain 0/10; rw1 01/04 21:46 Body Mass Index 24.56 (58.97 kg, 154.94 cm) lr2 MDM: 01/04 21:51 Differential Diagnosis: alcohol intoxication, history of substance abuse. Plan: labs, pc PFS eval. 21:58 Consult PFS/PSA/Saddle Stitcher ordered. pc 21:59 Acetaminophen Level Ordered. EDMS 21:59 Basic Metabolic Profile Ordered. EDMS 21:59 Complete Blood Count Ordered. EDMS 21:59 Drug Eval Toxicology ED Only Ordered. EDMS 21:59 Ethyl Alcohol (ethanol) Ordered. EDMS 21:59 HCG,Serum Qualitative Ordered. EDMS 21:59 Liver Profile Ordered. EDMS 21:59 Salicylate Level Ordered. EDMS 21:59 Thyroid Stimulating Hormone Ordered. EDMS 22:51 Complete Blood Count Reviewed. pc 22:51 Drug Eval Toxicology ED Only Reviewed. pc 22:51 HCG,Serum Qualitative Reviewed. pc 23:00 Acetaminophen Level Reviewed. pc 23:00 Basic Metabolic Profile Reviewed. pc 23:00 Ethyl Alcohol (ethanol) Reviewed. pc 23:00 Liver Profile Reviewed. pc 23:00 Salicylate Level Reviewed. pc 23:00 HCG,Serum Qualitative Reviewed. pc 23:00 Thyroid Stimulating Hormone Reviewed. pc 23:51 Financial registration complete. [facility] 01/05 00:13 Consult PFS/PSA/Saddle Stitcher complete. jfb 00:13 Data reviewed: old medical records, vital signs, nurses notes, lab test results. Test pc interpretation: LAB - all labs as ordered have been reviewed, interpreted and considered in the overall management of the clinical presentation;. The patient has been re-examined and re-evaluated. The patient's symptoms have mildly improved after treatment. Other consultation: The ED chemical plant worker was notified and will evaluate the patient. 00:13 Disposition: The historical points, examination findings, and any diagnostic results pc supporting the provided diagnosis, were discussed with the patient or legal guardian. The need for outpatient follow up with the provider listed on their discharge instructions was discussed. They were encouraged to return to [facility], or the nearest ED, if symptoms worsen/persist, or for any other questions/concerns. 00:23 Ondansetron ODT Oral Disintegrating Tablet 4 mg PO once ordered. [facility] 01:19 [facility] Payment Agreement was scanned into Side[employer] and attached to record. [facility] 01:42 PSA Outpatient Referrals was scanned into SideStep and attached to record. sasha Administered Medications: 00:39 Drug: Ondansetron ODT 4 mg [ondansetron 4 mg disintegrating tablet (1 tabs)] Route: PO; rw1 00:39 Follow up: Response: Pt left department before re-evaluation is appropriate rw1 Signatures: Dispatcher [employer] Chuck Nielson MD MD pc Workman, Robert, LPN LPN rw1 Ivory Chun PSA PSA jfb Fuller, Desiree,RN RN Dickson HunterRN RN Gale Amos [facility] The chart was reviewed and I authenticate all verbal orders and agree with the evaluation and treatment provided.Attachments: 01:19 [facility] Payment Agreement [facility] Chart Complete MTDD
== END 2017-01-05 00:42 | disposition home or self-care (01) ==
LOC: M ED 21:43
DX: F10.129 Alcohol abuse with intoxication, unspecified (principal); F12.10 Cannabis abuse, uncomplicated; B18.2 Chronic viral hepatitis C; F32.9 Major depressive disorder, single episode, unspecified; F41.0 Panic disorder [episodic paroxysmal anxiety]; F17.210 Nicotine dependence, cigarettes, uncomplicated; Z79.899 Other long term (current) drug therapy; Z88.8 Allergy status to other drugs, medicaments and biological substances
CPT/HCPCS: 80048; 80076; 80306; 84443; 84703; 85027; 99283; G0480

== ENCOUNTER 2017-02-01 09:58 | Emergency (ER) | payer OTHER ==
[~2017-02-01] VITALS: Ht 154.9 cm; Wt 59.4 kg
[2017-02-01] MEDS ORDERED: NS 1,000 ML IV ONE (11:30)
[2017-02-01] MEDS ORDERED: METOCLOPRAMIDE INJ 10MG/2ML VIAL (J2765) IV ONE (11:30)
[2017-02-01 12:07] LABS: BASO % 0.3 % (0.0-1.0); EOS # 0.1 K/mm3 (0.0-0.50); EOS % 0.9 % (0.0-3.0); LARGE UNSTAINED CELL # 0.2 K/mm3 (0.0-0.4); LARGE UNSTAINED CELL % 1.4 % (0.0-4.0); LYMPH # 3.1 K/mm3 (1.5-6.5); LYMPH % 27.3 % (24.0-44.0); MEAN CORPUSCULAR HEMOGLOBIN 31.1 pg (27.0-33.0); MEAN CORPUSCULAR HGB CONC 33.8 g/dl (32.0-36.5); MEAN CORPUSCULAR VOLUME 92.1 fl (80.0-96.0); MONO # 0.6 K/mm3 (0.0-0.8); MONO % 5.7 % (0.0-5.0); NEUTROPHILS # 7.2 K/mm3 (1.8-7.7); NEUTROPHILS % 64.4 % (36.0-66.0); PLATELET COUNT, AUTOMATED 107 k/mm3 (150-450); RED CELL DISTRIBUTION WIDTH 12.8 % (11.5-14.5); WHITE BLOOD COUNT 11.2 K/mm3 (4.0-10.0)
[2017-02-01 12:22] LABS: ALBUMIN 3.9 GM/DL (3.2-5.2); ALBUMIN/GLOBULIN RATIO 1.03 (1.00-1.93); ALKALINE PHOSPHATASE 87 U/L (45-117); ALT/SGPT 49 U/L (12-78); AMYLASE 55 U/L (25-115); ANION GAP 9 MEQ/L (8-16); AST/SGOT 33 U/L (15-37); BILIRUBIN,DIRECT 0.1 MG/DL (0.0-0.2); BILIRUBIN,TOTAL 0.3 MG/DL (0.2-1.0); BLOOD UREA NITROGEN 7 MG/DL (7-18); CALCIUM LEVEL 8.9 MG/DL (8.5-10.1); CARBON DIOXIDE LEVEL 26 MEQ/L (21-32); CHLORIDE LEVEL 105 MEQ/L (98-107); CREATININE FOR GFR 0.59 MG/DL (0.55-1.02); GLOMERULAR FILTRATION RATE > 60.0 (>60); GLUCOSE, FASTING 94 MG/DL (70-105); POTASSIUM SERUM 3.8 MEQ/L (3.5-5.1); SODIUM LEVEL 140 MEQ/L (136-145); TOTAL PROTEIN 7.7 GM/DL (6.4-8.2)
[2017-02-01 12:25] LABS: HCG, SERUM QUANTITATIVE < 1.0 MIU/ML
[2017-02-01 12:36] VITALS: BP 113/61
[2017-02-01] MEDS ORDERED: REGL10TA6 PO (12:48)
== END 2017-02-01 12:53 | disposition home or self-care (01) ==
LOC: M ED 11:11
DX: R11.2 Nausea with vomiting, unspecified (principal); R19.7 Diarrhea, unspecified; Z86.19 Personal history of other infectious and parasitic diseases; E03.9 Hypothyroidism, unspecified; F17.200 Nicotine dependence, unspecified, uncomplicated; Z88.8 Allergy status to other drugs, medicaments and biological substances
CPT/HCPCS: 80048; 80076; 81001; 82150; 83690; 84443; 84702; 85025; 96361; 96374; 99282; J2765

== ENCOUNTER 2017-04-14 16:10 | Emergency (ER) | payer OTHER ==
[~2017-04-14] VITALS: Ht 154.9 cm; Wt 59.4 kg
[~2017-04-14 16:10] MED LIST changes: +REGL10TA6 PO
[2017-04-14] MEDS ORDERED: NS 1,000 ML IV ONE (17:30)
[2017-04-14] MEDS ORDERED: ONDANSETRON 4MG/2ML VIAL (J2405) IV ONE (17:30)
[2017-04-14 18:19] LABS: BASO % 0.3 % (0.0-1.0); EOS # 0.1 K/mm3 (0.0-0.50); EOS % 1.7 % (0.0-3.0); LARGE UNSTAINED CELL # 0.1 K/mm3 (0.0-0.4); LARGE UNSTAINED CELL % 2.1 % (0.0-4.0); LYMPH # 1.6 K/mm3 (1.5-6.5); LYMPH % 21.1 % (24.0-44.0); MEAN CORPUSCULAR HEMOGLOBIN 32.2 pg (27.0-33.0); MEAN CORPUSCULAR HGB CONC 34.4 g/dl (32.0-36.5); MEAN CORPUSCULAR VOLUME 93.5 fl (80.0-96.0); MONO # 0.3 K/mm3 (0.0-0.8); MONO % 4.1 % (0.0-5.0); NEUTROPHILS # 4.8 K/mm3 (1.8-7.7); NEUTROPHILS % 70.8 % (36.0-66.0); PLATELET COUNT, AUTOMATED 100 k/mm3 (150-450); RED CELL DISTRIBUTION WIDTH 12.1 % (11.5-14.5); WHITE BLOOD COUNT 6.8 K/mm3 (4.0-10.0)
[2017-04-14 18:27] LABS: CALCIUM OXALATE CRYSTALS SMALL
[2017-04-14 19:36] LABS: ALBUMIN 3.2 GM/DL (3.2-5.2); ALBUMIN/GLOBULIN RATIO 0.91 (1.00-1.93); ALKALINE PHOSPHATASE 52 U/L (45-117); ALT/SGPT 144 U/L (12-78); ANION GAP 7 MEQ/L (8-16); AST/SGOT 121 U/L (15-37); BILIRUBIN,DIRECT 0.3 MG/DL (0.0-0.2); BILIRUBIN,TOTAL 0.8 MG/DL (0.2-1.0); BLOOD UREA NITROGEN 11 MG/DL (7-18); CALCIUM LEVEL 8.3 MG/DL (8.5-10.1); CARBON DIOXIDE LEVEL 25 MEQ/L (21-32); CHLORIDE LEVEL 107 MEQ/L (98-107); CREATININE FOR GFR 0.51 MG/DL (0.55-1.02); GLOMERULAR FILTRATION RATE > 60.0 (>60); GLUCOSE, FASTING 73 MG/DL (70-105); HCG, SERUM QUANTITATIVE 27983 MIU/ML; POTASSIUM SERUM 3.9 MEQ/L (3.5-5.1); SODIUM LEVEL 139 MEQ/L (136-145); TOTAL PROTEIN 6.7 GM/DL (6.4-8.2)
[2017-04-14] MEDS ORDERED: ZOFR4TAB3 PO (20:05)
[2017-04-14 20:15] VITALS: BP 132/76
== END 2017-04-14 20:19 | disposition home or self-care (01) ==
LOC: M ED 17:59
DX: Z32.01 Encounter for pregnancy test, result positive (principal); O26.891 Other specified pregnancy related conditions, first trimester; Z86.19 Personal history of other infectious and parasitic diseases; O99.331 Smoking (tobacco) complicating pregnancy, first trimester; Z88.8 Allergy status to other drugs, medicaments and biological substances

== ENCOUNTER → 2017-05-01 | Outpatient (CLI) | payer OTHER ==
[~2017-05-01] MED LIST changes: +ZOFR4TAB3 PO
[2017-05-01 13:08] LABS: BASO % 0.5 % (0.0-1.0); EOS # 0.1 K/mm3 (0.0-0.50); EOS % 1.4 % (0.0-3.0); LARGE UNSTAINED CELL # 0.1 K/mm3 (0.0-0.4); LYMPH # 1.5 K/mm3 (1.5-6.5); LYMPH % 17.5 % (24.0-44.0); MEAN CORPUSCULAR HEMOGLOBIN 32.8 pg (27.0-33.0); MEAN CORPUSCULAR HGB CONC 34.1 g/dl (32.0-36.5); MEAN CORPUSCULAR VOLUME 96.1 fl (80.0-96.0); MONO # 0.4 K/mm3 (0.0-0.8); MONO % 5.3 % (0.0-5.0); NEUTROPHILS # 5.8 K/mm3 (1.8-7.7); NEUTROPHILS % 74.2 % (36.0-66.0); PLATELET COUNT, AUTOMATED 109 k/mm3 (150-450); RED CELL DISTRIBUTION WIDTH 12.5 % (11.5-14.5); WHITE BLOOD COUNT 7.8 K/mm3 (4.0-10.0)
[2017-05-03 10:03] LABS: HBsAg Prenatal NEGATIVE (NEGATIVE)
== END ==
LOC: M LAB 11:28
PROVIDERS: ATTEND Advanced Practice Midwife
DX: Z34.81 Encounter for supervision of other normal pregnancy, first trimester (principal); Z3A.00 Weeks of gestation of pregnancy not specified

== ENCOUNTER → 2017-05-03 | Outpatient (REF) | payer OTHER | LOC: M LAB REF 16:56 | PROVIDERS: ATTEND Advanced Practice Midwife | DX: Z34.81 Encounter for supervision of other normal pregnancy, first trimester (principal) ==

== ENCOUNTER → 2017-05-06 | Outpatient (REF) | payer OTHER | LOC: M SFHCPLAZ 08:57 | PROVIDERS: ATTEND Nurse Practitioner Family | DX: B18.2 Chronic viral hepatitis C (principal); E03.9 Hypothyroidism, unspecified ==

== ENCOUNTER → 2017-05-27 | Outpatient (CLI) | payer OTHER ==
[2017-05-27 17:19] LABS: FREE T4 0.96 NG/DL (0.76-1.46)
[2017-05-28 09:24] LABS: HEPATITIS B SURFACE ANTIBODY POSITIVE (POSITIVE)
[2017-06-07 12:55] LABS: ALT 95 IU/L (0-40); GGT 28 IU/L (0-60); HAPTOGLOBIN 59 mg/dL (34-200); HEPATITIS C QUANTITATION 560040 IU/mL (.); HEPATITIS C VIRUS GENOTYPE 1a (.); NECROINFLAM SCORE 0.51 (0.00-0.17); NECROINFLAMM GRADE A1-A2 (.); TOTAL BILIRUBIN 0.3 mg/dL (0.0-1.2)
== END ==
LOC: M WUC 10:43
PROVIDERS: ATTEND Nurse Practitioner Family
DX: B18.2 Chronic viral hepatitis C (principal); E03.9 Hypothyroidism, unspecified

== ENCOUNTER → 2017-05-27 | Outpatient (CLI) | payer OTHER ==
[2017-05-27 13:48] LABS: ALBUMIN 2.7 GM/DL (3.2-5.2); ALBUMIN/GLOBULIN RATIO 0.82 (1.00-1.93); BILIRUBIN,DIRECT 0.1 MG/DL (0.0-0.2); BILIRUBIN,TOTAL 0.3 MG/DL (0.2-1.0); THYROXINE (T4) 10.9 UG/DL (4.5-12.0)
== END ==
LOC: M WUC 10:37
PROVIDERS: ATTEND Advanced Practice Midwife
DX: Z34.81 Encounter for supervision of other normal pregnancy, first trimester (principal); Z86.32 Personal history of gestational diabetes

== ENCOUNTER → 2017-06-17 | Outpatient (CLI) | payer OTHER | LOC: M LAB 06:47 | PROVIDERS: ATTEND Advanced Practice Midwife | DX: Z34.81 Encounter for supervision of other normal pregnancy, first trimester (principal) ==

== ENCOUNTER → 2017-07-06 | Outpatient (REF) | payer OTHER ==
[2017-07-20 10:49] LABS: SUMMARY SEE SEPARATE REPORT
== END ==
LOC: M LAB REF 16:57
PROVIDERS: ATTEND Obstetrics & Gynecology
DX: Z34.82 Encounter for supervision of other normal pregnancy, second trimester (principal)

== ENCOUNTER → 2017-07-13 | Outpatient (CLI) | payer MEDICAID, OTHER, SELFPAY ==
--- NOTE | 2017-07-13 11:03 | REP ---
Clinical: Anatomical evaluation. Comparison: None . Findings: Examination demonstrates a single live intrauterine in variable presentation. motion is identified by technologist. Placenta is noted posteriorly and grade zero without evidence for placenta previa or abruption. Amniotic fluid volume is normal. Cervix measures 5.5 cm in length and appears closed. Nuchal cord is appreciated. Gestational age by LMP 19 weeks 0 days with BOONE 12/07/2017 . Gestational age by current measurements 18 weeks 6 days with BOONE 12/08/2017 . FHR equals 150 beats per minute. BPD 4.2 cm 18 weeks 4 days HC 16.2 cm 19 weeks 0 days AC 13.9 cm 19 weeks 2 days FL 2.8 cm 18 weeks 4 days HL 2.7 cm 18 weeks 5 days HC/AC ratio 1.16 Estimated weight 266 grams ( 45th percentile). Anatomical assessment demonstrates normal structures including cranium, choroid plexus, cavum, cerebellum/posterior fossa, facial features, lungs, four-chamber heart/ventricular outflow tracts, diaphragm, stomach, cord insertion/three-vessel cord, kidneys/bladder, spine, and extremities. Impression: Single live intrauterine in variable presentation demonstrating appropriate interval growth. Nuchal cord noted. Anatomical assessment is complete and normal. No gross abnormalities are identified. Signed by Nickolas Ahuja MD 07/13/2017 10:54 A
== END ==
LOC: M RAD 09:29
PROVIDERS: ATTEND Advanced Practice Midwife
DX: Z34.82 Encounter for supervision of other normal pregnancy, second trimester (principal)

== ENCOUNTER → 2017-09-28 | Outpatient (REF) | payer OTHER ==
[2017-09-28 11:55] LABS: BASO # 0.1 10^3/uL (0.0-0.2); BASO % 0.4 % (0.0-1.0); EOS # 0.1 10^3/uL (0.0-0.50); EOS % 0.9 % (0.0-3.0); IMMATURE GRANULOCYTE % 1.1 % (0-0); LYMPH # 1.8 10^3/uL (1.5-6.5); LYMPH % 13.9 % (24.0-44.0); MEAN CORPUSCULAR HEMOGLOBIN 30.9 pg (27.0-33.0); MEAN CORPUSCULAR HGB CONC 33.7 g/dl (32.0-36.5); MEAN CORPUSCULAR VOLUME 91.7 fl (80.0-96.0); MONO % 8.3 % (0.0-5.0); NEUTROPHILS # 9.5 10^3/uL (1.8-7.7); NEUTROPHILS % 75.4 % (36.0-66.0); RED CELL DISTRIBUTION WIDTH 12.3 % (11.5-14.5); WHITE BLOOD COUNT 12.6 10^3/uL (4.0-10.0)
[2017-09-28 11:57] LABS: PLATELET COUNT, AUTOMATED 97 10^3/uL (150-450)
[2017-09-28 12:03] LABS: PLATELET F 17.5
[2017-09-28 12:09] LABS: ALBUMIN 2.9 GM/DL (3.2-5.2); ALBUMIN/GLOBULIN RATIO 0.85 (1.00-1.93); ALKALINE PHOSPHATASE 83 U/L (45-117); ALT/SGPT 40 U/L (12-78); ANION GAP 8 MEQ/L (8-16); AST/SGOT 31 U/L (7-37); BILIRUBIN,TOTAL 0.3 MG/DL (0.2-1.0); BLOOD UREA NITROGEN 6 MG/DL (7-18); CALCIUM LEVEL 8.5 MG/DL (8.5-10.1); CARBON DIOXIDE LEVEL 23 MEQ/L (21-32); CHLORIDE LEVEL 107 MEQ/L (98-107); CREATININE FOR GFR 0.53 MG/DL (0.55-1.02); GLOMERULAR FILTRATION RATE > 60.0 (>60); GLUCOSE, FASTING 82 MG/DL (70-105); POTASSIUM SERUM 3.7 MEQ/L (3.5-5.1); SODIUM LEVEL 138 MEQ/L (136-145); TOTAL PROTEIN 6.3 GM/DL (6.4-8.2)
[2017-10-01 14:10] LABS: HEPATITIS C QUANTITATION 91820 IU/mL (.)
== END ==
LOC: M SFHCPLAZ 10:23
PROVIDERS: ATTEND Internal Medicine Infectious Disease
DX: B18.2 Chronic viral hepatitis C (principal)

== ENCOUNTER → 2017-11-03 | Outpatient (REF) | payer OTHER | LOC: M LAB REF 12:56 | DX: Z34.83 Encounter for supervision of other normal pregnancy, third trimester (principal) | CPT/HCPCS: 87086 ==

== ENCOUNTER → 2017-11-12 | Outpatient (REF) | payer OTHER | LOC: M LAB REF 16:55 | DX: Z34.83 Encounter for supervision of other normal pregnancy, third trimester (principal) ==

== ENCOUNTER 2017-12-01 09:59 | Inpatient (IN) | payer OTHER ==
[2017-12-01] MEDS: NICOTINE 14 MG/24 HR TRANSDERMAL TD (09:00)
[2017-12-01] MEDS: PRENATAL VITAMINS CHEWABLE TABLET PO (09:00)
[2017-12-01 11:46] LABS: HEMATOCRIT 35.1 % (36.0-47.0); HEMOGLOBIN 11.8 g/dl (12.0-16.0); MEAN CORPUSCULAR HEMOGLOBIN 29.9 pg (27.0-33.0); MEAN CORPUSCULAR HGB CONC 33.6 g/dl (32.0-36.5); MEAN CORPUSCULAR VOLUME 89.1 fl (80.0-96.0); RED BLOOD COUNT 3.94 10^6/uL (4.00-5.40); RED CELL DISTRIBUTION WIDTH 13.3 % (11.5-14.5); WHITE BLOOD COUNT 10.2 10^3/uL (4.0-10.0)
[2017-12-01 11:54] LABS: PLATELET COUNT, AUTOMATED 97 10^3/uL (150-450)
[2017-12-01 11:55] LABS: IMMATURE PLATELET FRACTION % 21.8 % (0.0-9.6)
[2017-12-01] MEDS: PENICILLIN G POTASSIUM IV 5 MU in D5W MINI-BAG PLUS 100 ML IV (12:09)
[2017-12-01] MEDS: LR 1,000 ML IV (12:09)
[2017-12-01 12:13] LABS: AMPHETAMINES URINE REFLEX NEGATIVE (NEGATIVE); BARBITURATES URINE REFLEX NEGATIVE (NEGATIVE); BENZODIAZEPINES URINE REFLEX NEGATIVE (NEGATIVE); CANNABINOIDS URINE REFLEX NEGATIVE (NEGATIVE); COCAINE METABOLITE URINE REFLE NEGATIVE (NEGATIVE); METHADONE URINE REFLEX NEGATIVE (NEGATIVE); OPIATES URINE REFLEX NEGATIVE (NEGATIVE); PHENCYCLIDINE URINE REFLEX NEGATIVE (NEGATIVE)
[2017-12-01] MEDS: OXYTOCIN DRIP 30 UNITS in APPROPRIATE DILUENT 1 EA IV (12:14)
[2017-12-01] MEDS ORDERED: FENTANYL 2MCG/ML ROPIVACAINE 0.2% IN 0.9% NACL 200ML IVBAG As Ordered (13:13)
[2017-12-01] MEDS ORDERED: MOM 30ML SUSPENSION UDC PO (15:00)
[2017-12-01] MEDS ORDERED: ANUSOL HC CREAM 30GM TOP (15:00)
[2017-12-01] MEDS ORDERED: RHOGAM 300 MCG (1500 IU) INJ (J2790) IM (15:00)
[2017-12-01] MEDS ORDERED: METHYLERGONOVINE MALEATE 0.2 MG TAB PO (15:00)
[2017-12-01 15:06] LABS: CORD GAS ABE V -4.4; CORD GAS HCO3 V 19.3 MEQ/L; CORD GAS O2 SAT V 85.1 %; CORD GAS PH V 7.399 UNITS; CORD GAS SBC V 20.6 MEQ/L; CORD GAS TCO2 V 20.3 MEQ/L
[2017-12-01 15:10] LABS: CORD GAS ABE A -6.3; CORD GAS HCO3 A 17.6 MEQ/L; CORD GAS O2 SAT A 88.2 %; CORD GAS PH A 7.372 UNITS; CORD GAS PO2 A 40.2 mmHg; CORD GAS SBC A 19.2 MEQ/L; CORD GAS TCO2 A 18.6 MEQ/L
[2017-12-01] MEDS ORDERED: PENICILLIN G POTASSIUM IV 2.5 MU in APPROPRIATE DILUENT 1 EA IV (15:30)
[2017-12-01] MEDS ORDERED: EPIDURAL/PCA KEYS XX (16:30)
[2017-12-01] MEDS ORDERED: ePHEDrine INJ 50 MG/ML VIAL IV (16:30)
[2017-12-01] MEDS: FENTANYL/ROPIVACAINE/NACL BAG 200 ML EPIDURAL (16:30)
[2017-12-01] MEDS ORDERED: diphenhydrAMINE INJ 50MG/ML VIAL (J1200) IV (16:30)
[2017-12-01] MEDS ORDERED: NALOXONE INJ 0.4 MG/1 ML VIAL (J2310) IV (16:30)
[2017-12-01] MEDS ORDERED: REFRIGERATOR IV KEYS XX (16:30)
[2017-12-01] MEDS ORDERED: ONDANSETRON 4MG/2ML VIAL (J2405) IV (16:30)
[2017-12-01] MEDS ORDERED: EPIDURAL COMMENT XX (16:30)
[2017-12-01] MEDS ORDERED: LACTATED RINGER'S 1000 ML IV (16:30)
[2017-12-01] MEDS: ACETAMINOPHEN 500 MG TAB PO (19:05)
[2017-12-01] MEDS: IBUPROFEN 800 MG TAB PO (20:17)
[2017-12-02] MEDS: IBUPROFEN 800 MG TAB PO ×3 (04:11→20:15)
[2017-12-02] MEDS: FENTANYL/ROPIVACAINE/NACL BAG 200 ML EPIDURAL (07:23)
[2017-12-02] MEDS: MEASLES,MUMPS,RUBELLA VACCINE INJ (MMR-II) (90707) SC (07:24)
[2017-12-02] MEDS: ACETAMINOPHEN 500 MG TAB PO (08:48)
[2017-12-02] MEDS: NICOTINE 14 MG/24 HR TRANSDERMAL TD (08:48)
[2017-12-02] MEDS: PRENATAL VITAMINS CHEWABLE TABLET PO (08:49)
[2017-12-02 12:51] LABS: ALBUMIN 3.1 GM/DL (3.2-5.2); ALBUMIN/GLOBULIN RATIO 0.79 (1.00-1.93); ALKALINE PHOSPHATASE 124 U/L (45-117); ALT/SGPT 53 U/L (12-78); ANION GAP 8 MEQ/L (8-16); AST/SGOT 52 U/L (7-37); BILIRUBIN,TOTAL 0.4 MG/DL (0.2-1.0); BLOOD UREA NITROGEN 10 MG/DL (7-18); CALCIUM LEVEL 8.6 MG/DL (8.5-10.1); CARBON DIOXIDE LEVEL 25 MEQ/L (21-32); CHLORIDE LEVEL 109 MEQ/L (98-107); CREATININE FOR GFR 0.68 MG/DL (0.55-1.02); GLOMERULAR FILTRATION RATE > 60.0 (>60); GLUCOSE, FASTING 81 MG/DL (70-100); POTASSIUM SERUM 3.8 MEQ/L (3.5-5.1); SODIUM LEVEL 142 MEQ/L (136-145)
[2017-12-02] MEDS: DOCUSATE SODIUM 100 MG CAP PO (20:15)
[2017-12-02] MEDS: DIBUCAINE 1% OINTMENT 30GM TOP (20:15)
[2017-12-03] MEDS: IBUPROFEN 800 MG TAB PO (04:24)
[2017-12-03] MEDS: PRENATAL VITAMINS CHEWABLE TABLET PO (08:03)
[2017-12-03] MEDS: NICOTINE 14 MG/24 HR TRANSDERMAL TD (08:04)
[2017-12-03] MEDS: ACETAMINOPHEN 500 MG TAB PO (08:04)
[2017-12-06 10:08] LABS: HEPATITIS C QUANTITATION 367090 IU/mL (.)
== END 2017-12-03 16:10 | disposition home or self-care (01) | DRG 560 ==
LOC: M LDO 09:59 → M LDI 10:38 → M OBS 16:37
PROVIDERS: Advanced Practice Midwife
PROC: 10E0XZZ Delivery of Products of Conception, External Approach (ICD-10-PCS; principal; 2017-12-01)
DX: O98.42 Viral hepatitis complicating childbirth (principal); O99.324 Drug use complicating childbirth; O69.82X0 Labor and delivery complicated by other cord entanglement, without compression, not applicable or unspecified; Z37.0 Single live birth; Z3A.39 39 weeks gestation of pregnancy; B18.2 Chronic viral hepatitis C; O77.0 Labor and delivery complicated by meconium in amniotic fluid; F11.11 Opioid abuse, in remission

== ENCOUNTER 2018-02-20 18:00 | Emergency (ER) | payer OTHER ==
[2018-02-20] MEDS ORDERED: LORazepam 2 MG/ML VIAL (J2060) IV (18:29)
[2018-02-20] MEDS ORDERED: NS 1,000 ML IV (18:30)
[2018-02-20] MEDS ORDERED: ONDANSETRON 4MG/2ML VIAL (J2405) IV (18:30)
[2018-02-20] MEDS ORDERED: LORazepam 2 MG/ML VIAL (J2060) As Ordered (18:31)
[2018-02-20] MEDS ORDERED: ONDANSETRON 4MG/2ML VIAL (J2405) As Ordered (18:31)
[2018-02-20] MEDS: ONDANSETRON 4MG/2ML VIAL (J2405) IV (18:45)
[2018-02-20] MEDS: LORazepam 2 MG/ML VIAL (J2060) IV (18:45)
[2018-02-20] MEDS: NS 1,000 ML IV (18:45)
[2018-02-20] MEDS: OXAZEPAM 15 MG CAP PO (18:50)
[2018-02-20 19:01] LABS: HEMATOCRIT 42.1 % (36.0-47.0); HEMOGLOBIN 14.7 g/dl (12.0-15.5); MEAN CORPUSCULAR HEMOGLOBIN 30.4 pg (27.0-33.0); MEAN CORPUSCULAR HGB CONC 34.9 g/dl (32.0-36.5); MEAN CORPUSCULAR VOLUME 87.2 fl (80.0-96.0); RED BLOOD COUNT 4.83 10^6/uL (4.00-5.40); RED CELL DISTRIBUTION WIDTH 13.5 % (11.5-14.5)
[2018-02-20 19:18] LABS: ALBUMIN 4.2 GM/DL (3.2-5.2); ALBUMIN/GLOBULIN RATIO 0.93 (1.00-1.93); ALKALINE PHOSPHATASE 82 U/L (45-117); ALT/SGPT 143 U/L (12-78); ANION GAP 9 MEQ/L (8-16); AST/SGOT 126 U/L (7-37); BILIRUBIN,DIRECT 0.2 MG/DL (0.0-0.2); BILIRUBIN,TOTAL 0.6 MG/DL (0.2-1.0); BLOOD UREA NITROGEN 6 MG/DL (7-18); CALCIUM LEVEL 9.2 MG/DL (8.5-10.1); CARBON DIOXIDE LEVEL 26 MEQ/L (21-32); CHLORIDE LEVEL 104 MEQ/L (98-107); CREATININE FOR GFR 0.73 MG/DL (0.55-1.30); GLOMERULAR FILTRATION RATE > 60.0 (>60); GLUCOSE, FASTING 109 MG/DL (70-100); POTASSIUM SERUM 3.7 MEQ/L (3.5-5.1); SODIUM LEVEL 139 MEQ/L (136-145); TOTAL PROTEIN 8.7 GM/DL (6.4-8.2)
[2018-02-20 19:38] LABS: PLATELET COUNT, AUTOMATED 88 10^3/uL (150-450)
[2018-02-20 19:39] LABS: IMMATURE PLATELET FRACTION % 6.8 % (0.0-9.6)
== END 2018-02-20 20:58 | disposition home or self-care (01) ==
LOC: M ED 18:00
DX: F10.20 Alcohol dependence, uncomplicated (principal); E11.9 Type 2 diabetes mellitus without complications; J45.909 Unspecified asthma, uncomplicated; Z86.19 Personal history of other infectious and parasitic diseases; F17.200 Nicotine dependence, unspecified, uncomplicated; Z79.899 Other long term (current) drug therapy; Z88.8 Allergy status to other drugs, medicaments and biological substances
CPT/HCPCS: J2405

== ENCOUNTER 2018-06-20 23:47 | Emergency (ER) | payer OTHER ==
[2018-06-21] MEDS: BACTRIM 160MG/800MG DS TAB PO (01:51)
== END 2018-06-21 02:13 | disposition home or self-care (01) ==
LOC: M ED 23:47
DX: S40.861A Insect bite (nonvenomous) of right upper arm, initial encounter (principal); S40.862A Insect bite (nonvenomous) of left upper arm, initial encounter; S10.86XA Insect bite of other specified part of neck, initial encounter; S20.469A Insect bite (nonvenomous) of unspecified back wall of thorax, initial encounter; W57.XXXA Bitten or stung by nonvenomous insect and other nonvenomous arthropods, initial encounter; Y92.89 Other specified places as the place of occurrence of the external cause; F19.10 Other psychoactive substance abuse, uncomplicated; B37.3 Candidiasis of vulva and vagina; J45.909 Unspecified asthma, uncomplicated; G40.909 Epilepsy, unspecified, not intractable, without status epilepticus; B18.2 Chronic viral hepatitis C; F17.200 Nicotine dependence, unspecified, uncomplicated; Z87.440 Personal history of urinary (tract) infections; Z88.8 Allergy status to other drugs, medicaments and biological substances
CPT/HCPCS: 99283

== ENCOUNTER 2018-11-05 12:47 | Emergency (ER) | payer MEDICAID, OTHER, SELFPAY ==
[~2018-11-05 12:47] MED LIST changes: +BACT800T5 PO; +BENA2CRE2 TOP; +COLA100C5 PO; +DIFL150T PO; +GABA-845 PO; +MOTR200T44 PO; +OXAZ30CA2 PO; +PRED20TA PO; +PRENTAB9 PO; +TYLE500T78 PO; +ZOFR4TAB14 PO; -ZOFR4TAB3 PO
[2018-11-05 13:16] LABS: HEMOGLOBIN 15.2 g/dl (12.0-15.5); MEAN CORPUSCULAR HEMOGLOBIN 29.3 pg (27.0-33.0); MEAN CORPUSCULAR VOLUME 88.8 fl (80.0-96.0); PLATELET COUNT, AUTOMATED 210 10^3/uL (150-450); RED BLOOD COUNT 5.18 10^6/uL (4.00-5.40)
[2018-11-05 13:32] LABS: HCG, SERUM QUALITATIVE NEGATIVE (NEGATIVE)
[2018-11-05 14:20] LABS: AMPHETAMINES LEVEL URINE NEGATIVE (NEGATIVE); BARBITURATES URINE NEGATIVE (NEGATIVE); BENZODIAZEPINES URINE POSITIVE (NEGATIVE); CANNABINOIDS URINE NEGATIVE (NEGATIVE); COCAINE METABOLITE URINE NEGATIVE (NEGATIVE); METHADONE URINE NEGATIVE (NEGATIVE); OPIATES URINE NEGATIVE (NEGATIVE); PHENCYCLIDINE URINE NEGATIVE (NEGATIVE)
[2018-11-05 14:23] LABS: ACETAMINOPHEN LEVEL < 2.0 UG/ML (10.0-30.0); ALBUMIN 3.4 GM/DL (3.2-5.2); ALT/SGPT 87 U/L (12-78); BILIRUBIN,DIRECT < 0.1 MG/DL (0.0-0.2); BILIRUBIN,TOTAL 0.2 MG/DL (0.2-1.0); BLOOD UREA NITROGEN 13 MG/DL (7-18); CALCIUM LEVEL 8.1 MG/DL (8.5-10.1); CARBON DIOXIDE LEVEL 24 MEQ/L (21-32); CHLORIDE LEVEL 117 MEQ/L (98-107); CPK CREATINE PHOSPHOKINASE 70 U/L (26-192); CREATININE FOR GFR 0.76 MG/DL (0.55-1.30); ETHYL ALCOHOL (ETHANOL) 0.457 % (0.000-0.010); GLOMERULAR FILTRATION RATE > 60.0 (>60); GLUCOSE, FASTING 117 MG/DL (70-100); POTASSIUM SERUM 4.2 MEQ/L (3.5-5.1); SODIUM LEVEL 148 MEQ/L (136-145); THYROID STIMULATING HORMONE 0.432 uIU/ML (0.358-3.740); TOTAL PROTEIN 7.7 GM/DL (6.4-8.2)
[2018-11-05] MEDS ORDERED: LORazepam 2 MG TAB PO PRN (19:15)
[2018-11-05] MEDS ORDERED: OXAZ30CA2 PO (20:47)
[2018-11-05] MEDS ORDERED: THIAMINE 100 MG TAB PO SCH (21:00)
[2018-11-05 21:07] VITALS: BP 128/89
[2018-11-06] MEDS ORDERED: FOLIC ACID 1 MG TAB PO SCH (09:00)
[2018-11-06] MEDS ORDERED: MULTIVITAMINS/MINERALS THERAP 1 TAB PO SCH (09:00)
== END 2018-11-05 21:09 | disposition home or self-care (01) ==
LOC: M ED 12:47
DX: F10.129 Alcohol abuse with intoxication, unspecified (principal); F32.9 Major depressive disorder, single episode, unspecified; B18.2 Chronic viral hepatitis C; Z72.0 Tobacco use; Z81.1 Family history of alcohol abuse and dependence; Z88.8 Allergy status to other drugs, medicaments and biological substances
CPT/HCPCS: 80048; 80076; 80307; 82550; 84443; 84703; 85027; 99284; G0480

== ENCOUNTER 2018-11-19 16:27 | Emergency (ER) | payer MEDICAID, SELFPAY ==
[~2018-11-19] VITALS: Ht 154.9 cm; Wt 53.5 kg
[2018-11-19 16:28] VITALS: BP 131/99
[2018-11-19 17:09] LABS: URINE PREG TEST NEGATIVE (NEGATIVE)
[2018-11-19] MEDS ORDERED: ACETAMINOPHEN 325 MG TAB PO ONE (17:45)
== END 2018-11-19 18:02 | disposition left against medical advice (07) ==
LOC: M ED 16:27
DX: F10.220 Alcohol dependence with intoxication, uncomplicated (principal); B19.20 Unspecified viral hepatitis C without hepatic coma; F17.210 Nicotine dependence, cigarettes, uncomplicated; Z88.8 Allergy status to other drugs, medicaments and biological substances

== ENCOUNTER 2018-11-25 12:51 | Emergency (ER) | payer SELFPAY ==
[~2018-11-25] VITALS: Ht 154.9 cm; Wt 53.2 kg
[2018-11-25] MEDS ORDERED: NS 1,000 ML IV ONE (13:15)
[2018-11-25 14:07] LABS: BASO % 0.5 % (0.0-1.0); EOS % 0.4 % (0.0-3.0); LYMPH # 2.2 10^3/uL (1.5-4.5); LYMPH % 39.6 % (24.0-44.0); MEAN CORPUSCULAR HEMOGLOBIN 29.7 pg (27.0-33.0); MEAN CORPUSCULAR HGB CONC 34.8 g/dl (32.0-36.5); MEAN CORPUSCULAR VOLUME 85.3 fl (80.0-96.0); MONO # 0.3 10^3/uL (0.0-0.8); MONO % 5.4 % (0.0-5.0); NEUTROPHILS % 53.9 % (36.0-66.0); PLATELET COUNT, AUTOMATED 115 10^3/uL (150-450); RED BLOOD COUNT 5.39 10^6/uL (4.00-5.40); WHITE BLOOD COUNT 5.6 10^3/uL (4.0-10.0)
[2018-11-25] MEDS ORDERED: NICOTINE 21MG/24HR 1 EA TRANSDERMAL TD ONE (14:15)
[2018-11-25 15:01] LABS: ACETAMINOPHEN LEVEL < 2.0 UG/ML (10.0-30.0); ALBUMIN 3.7 GM/DL (3.2-5.2); ALT/SGPT 385 U/L (12-78); BILIRUBIN,DIRECT 0.3 MG/DL (0.0-0.2); BILIRUBIN,TOTAL 0.4 MG/DL (0.2-1.0); BLOOD UREA NITROGEN 21 MG/DL (7-18); CALCIUM LEVEL 7.6 MG/DL (8.5-10.1); CARBON DIOXIDE LEVEL 19 MEQ/L (21-32); CHLORIDE LEVEL 109 MEQ/L (98-107); CPK CREATINE PHOSPHOKINASE 68 U/L (26-192); CREATININE FOR GFR 0.66 MG/DL (0.55-1.30); ETHYL ALCOHOL (ETHANOL) 0.428 % (0.000-0.010); GLOMERULAR FILTRATION RATE > 60.0 (>60); GLUCOSE, FASTING 82 MG/DL (70-100); MB/CK RELATIVE INDEX 1.91 (< OR =4); POTASSIUM SERUM 3.8 MEQ/L (3.5-5.1); SALICYLATE LEVEL 2.1 MG/DL (5.0-30.0); SODIUM LEVEL 144 MEQ/L (136-145); TOTAL PROTEIN 7.8 GM/DL (6.4-8.2); TROPONIN I < 0.02 NG/ML (< 0.10)
[2018-11-25 15:03] LABS: OSMOLALITY SERUM 415 MOSM/KG (275-295)
[2018-11-25 15:07] LABS: HCG, SERUM QUALITATIVE NEGATIVE (NEGATIVE)
--- NOTE | 2018-11-25 15:43 | REP ---
CT Head without contrast HISTORY: Altered mental status COMPARISON: 02/28/2016 There is no intraparenchymal hemorrhage, acute infarct, mass or midline shift. The ventricular system is normal in appearance. There is no extra cerebral collection. There is no fracture. The visualized sinuses are clear. IMPRESSION: There is no intracranial lesion. Electronically Signed by Raymon Doyle MD 11/25/2018 03:35 P
[2018-11-25] MEDS ORDERED: ONDANSETRON 4MG/2ML VIAL (J2405) IV ONE (15:45)
[2018-11-25 15:50] LABS: AMPHETAMINES LEVEL URINE NEGATIVE (NEGATIVE); BARBITURATES URINE NEGATIVE (NEGATIVE); BENZODIAZEPINES URINE NEGATIVE (NEGATIVE); CANNABINOIDS URINE POSITIVE (NEGATIVE); COCAINE METABOLITE URINE NEGATIVE (NEGATIVE); METHADONE URINE NEGATIVE (NEGATIVE); OPIATES URINE NEGATIVE (NEGATIVE); PHENCYCLIDINE URINE NEGATIVE (NEGATIVE)
--- NOTE | 2018-11-25 16:03 | REP ---
Chest one-view HISTORY: Altered mental status Comparison: 07/19/2013 The lungs are clear. The heart is normal in size. The pulmonary vasculature is normal in appearance. Impression: No acute disease. Electronically Signed by Raymon Doyle MD 11/25/2018 03:55 P
[2018-11-25] MEDS ORDERED: CEPHALEXIN 500 MG CAP As Ordered ONE (16:15)
[2018-11-25] MEDS ORDERED: ONDANSETRON 4 MG ORAL DISINTEGRATING TAB (Q0162 PER 1MG) PO ONE (16:15)
[2018-11-25] MEDS ORDERED: levETIRAcetam 250MG TABLET (KEPPRA) PO ONE (16:15)
[2018-11-25] MEDS ORDERED: CEFDINIR 300 MG CAP (OMNICEF) PO ONE (16:45)
[2018-11-25] MEDS ORDERED: IBUPROFEN 400 MG TAB PO ONE (19:00)
[2018-11-26] MEDS ORDERED: IBUPROFEN 600 MG TAB PO ONE (08:30)
[2018-11-26] MEDS ORDERED: OXAZ30CA2 PO (11:34)
[2018-11-26] MEDS ORDERED: NITROFURANTOIN (MACROBID) 100 MG CAP PO ONE (11:45)
[2018-11-26 11:50] VITALS: BP 133/87
--- NOTE | 2018-11-27 06:44 | ECGEPIP ---
Stationary ECG Study [facility] - ED Test Date: 2018-11-25 Pat Name: JORDAN ANN Department: Room: - Gender: F [employer]: : 1990 Requested By: CRISTOBAL Dewey Order Number: [id number] Reading MD: Felipe Alan Measurements Intervals [place] Rate: 97 P: 36 NM: 137 QRS: 14 QRSD: 110 T: 52 QT: 354 QTc: 451 Interpretive Statements SINUS RHYTHM 08/03/14 RATE DECREASED Electronically Signed On 11-27-2018 6:44:19 EST by Felipe Alan
== END 2018-11-26 11:57 | disposition home or self-care (01) ==
LOC: EDBD 12:51 → M ED 12:51
DX: F10.229 Alcohol dependence with intoxication, unspecified (principal); N39.0 Urinary tract infection, site not specified; B19.20 Unspecified viral hepatitis C without hepatic coma; E03.9 Hypothyroidism, unspecified; Z88.8 Allergy status to other drugs, medicaments and biological substances; F17.210 Nicotine dependence, cigarettes, uncomplicated
CPT/HCPCS: 36415; 70450; 71045; 80048; 80076; 80307; 81001; 82140; 82550; 82553; 83605; 83930; 84443; 84484; 84703; 85025; 87040; 87088; 87186; 93005; 93041; 94760; 99285; G0480; Q0162

== ENCOUNTER → 2018-12-22 | Outpatient (REF) | payer MEDICAID | LOC: M SFHCPLAZ 12:16 | PROVIDERS: ATTEND Nurse Practitioner Family | DX: Z53.9 Procedure and treatment not carried out, unspecified reason (principal); B18.2 Chronic viral hepatitis C; E03.9 Hypothyroidism, unspecified; N91.2 Amenorrhea, unspecified ==

== ENCOUNTER 2018-12-26 21:47 | Emergency (ER) | payer MEDICAID ==
[~2018-12-26] VITALS: Ht 154.9 cm; Wt 57.7 kg
[2018-12-26] MEDS ORDERED: PANTOPRAZOLE 40MG INJ (PROTONIX) (C9113) IV ONE (23:15)
[2018-12-27 00:02] LABS: HCG, SERUM QUALITATIVE NEGATIVE (NEGATIVE)
[2018-12-27 00:11] LABS: HEMATOCRIT 47.4 % (36.0-47.0); HEMOGLOBIN 16.6 g/dl (12.0-15.5); MEAN CORPUSCULAR HEMOGLOBIN 30.4 pg (27.0-33.0); MEAN CORPUSCULAR VOLUME 86.8 fl (80.0-96.0); PLATELET COUNT, AUTOMATED 151 10^3/uL (150-450); RED BLOOD COUNT 5.46 10^6/uL (4.00-5.40); WHITE BLOOD COUNT 11.5 10^3/uL (4.0-10.0)
[2018-12-27 00:14] LABS: AMPHETAMINES LEVEL URINE NEGATIVE (NEGATIVE); BARBITURATES URINE NEGATIVE (NEGATIVE); BENZODIAZEPINES URINE NEGATIVE (NEGATIVE); CANNABINOIDS URINE POSITIVE (NEGATIVE); COCAINE METABOLITE URINE NEGATIVE (NEGATIVE); METHADONE URINE NEGATIVE (NEGATIVE); OPIATES URINE NEGATIVE (NEGATIVE); PHENCYCLIDINE URINE NEGATIVE (NEGATIVE)
[2018-12-27 00:22] LABS: ACETAMINOPHEN LEVEL < 2.0 UG/ML (10.0-30.0); ALBUMIN 4.3 GM/DL (3.2-5.2); ALT/SGPT 343 U/L (12-78); BILIRUBIN,DIRECT 0.3 MG/DL (0.0-0.2); BILIRUBIN,TOTAL 0.7 MG/DL (0.2-1.0); BLOOD UREA NITROGEN 21 MG/DL (7-18); CALCIUM LEVEL 8.2 MG/DL (8.5-10.1); CARBON DIOXIDE LEVEL 21 MEQ/L (21-32); CHLORIDE LEVEL 104 MEQ/L (98-107); CREATININE FOR GFR 0.68 MG/DL (0.55-1.30); ETHYL ALCOHOL (ETHANOL) 0.462 % (0.000-0.010); GLOMERULAR FILTRATION RATE > 60.0 (>60); GLUCOSE, FASTING 81 MG/DL (70-100); POTASSIUM SERUM 4.3 MEQ/L (3.5-5.1); SALICYLATE LEVEL 3.1 MG/DL (5.0-30.0); SODIUM LEVEL 140 MEQ/L (136-145); THYROID STIMULATING HORMONE 0.513 uIU/ML (0.358-3.740); TOTAL PROTEIN 8.8 GM/DL (6.4-8.2)
[2018-12-27 01:30] VITALS: BP 110/70
--- NOTE | 2018-12-27 08:09 | REP ---
RIGHT SHOULDER, THREE VIEWS: HISTORY: Fall. There is no acute fracture or dislocation. The joint spaces are normal in appearance. IMPRESSION: There is no acute fracture or dislocation. Electronically Signed by Raymon Doyle MD 12/27/2018 08:10 A
== END 2018-12-27 01:30 | disposition home or self-care (01) ==
LOC: M ED 21:47
DX: F10.220 Alcohol dependence with intoxication, uncomplicated (principal); Z88.8 Allergy status to other drugs, medicaments and biological substances; Z91.81 History of falling
CPT/HCPCS: 73030; 80048; 80076; 80307; 84443; 84703; 85027; 86850; 86900; 86901; 96374; 99284; C9113; G0480

== ENCOUNTER → 2019-01-04 | Outpatient (REF) | payer MEDICAID ==
[2019-01-04 14:13] LABS: HEMATOCRIT 37.7 % (36.0-47.0); HEMOGLOBIN 12.5 g/dl (12.0-15.5); MEAN CORPUSCULAR HEMOGLOBIN 30.4 pg (27.0-33.0); MEAN CORPUSCULAR HGB CONC 33.2 g/dl (32.0-36.5); MEAN CORPUSCULAR VOLUME 91.7 fl (80.0-96.0); PLATELET COUNT, AUTOMATED 126 10^3/uL (150-450); RED BLOOD COUNT 4.11 10^6/uL (4.00-5.40); WHITE BLOOD COUNT 5.4 10^3/uL (4.0-10.0)
[2019-01-04 14:41] LABS: ALT/SGPT 136 U/L (12-78); BILIRUBIN,TOTAL 0.5 MG/DL (0.2-1.0); BLOOD UREA NITROGEN 16 MG/DL (7-18); CALCIUM LEVEL 9.2 MG/DL (8.5-10.1); CARBON DIOXIDE LEVEL 26 MEQ/L (21-32); CHLORIDE LEVEL 106 MEQ/L (98-107); CREATININE FOR GFR 0.64 MG/DL (0.55-1.30); GLOMERULAR FILTRATION RATE > 60.0 (>60); GLUCOSE, FASTING 92 MG/DL (70-100); POTASSIUM SERUM 4.2 MEQ/L (3.5-5.1); RHEUMATOID FACTOR QUANT < 10.0 IU/ML (<15.0); SODIUM LEVEL 138 MEQ/L (136-145); THYROID STIMULATING HORMONE 0.177 uIU/ML (0.358-3.740); TOTAL PROTEIN 7.7 GM/DL (6.4-8.2)
[2019-01-04 14:45] LABS: ERYTHROCYTE SEDIMENTATION RATE 25 mm/hr (0-20)
[2019-01-04 15:22] LABS: HIV 1&2 SCREEN CENTAUR NEGATIVE (NEGATIVE)
[2019-01-04 18:37] LABS: FREE T4 1.18 NG/DL (0.76-1.46)
== END ==
LOC: M SFHCPLAZ 12:32
PROVIDERS: ATTEND Nurse Practitioner Family
DX: B18.2 Chronic viral hepatitis C (principal); D69.3 Immune thrombocytopenic purpura; R94.5 Abnormal results of liver function studies; E03.9 Hypothyroidism, unspecified; M25.50 Pain in unspecified joint; M35.3 Polymyalgia rheumatica

== ENCOUNTER 2019-02-08 18:59 | Emergency (ER) | payer OTHER ==
[~2019-02-08] VITALS: Ht 154.9 cm; Wt 55.9 kg
[2019-02-08 19:00] VITALS: BP 129/93
[2019-02-08] MEDS ORDERED: FOLI5CAP PO (19:07)
[2019-02-08 19:29] LABS: URINE PREG TEST NEGATIVE (NEGATIVE)
[2019-02-08 19:57] LABS: AMPHETAMINES LEVEL URINE NEGATIVE (NEGATIVE); BARBITURATES URINE NEGATIVE (NEGATIVE); BENZODIAZEPINES URINE NEGATIVE (NEGATIVE); CANNABINOIDS URINE POSITIVE (NEGATIVE); COCAINE METABOLITE URINE NEGATIVE (NEGATIVE); METHADONE URINE NEGATIVE (NEGATIVE); OPIATES URINE NEGATIVE (NEGATIVE); PHENCYCLIDINE URINE NEGATIVE (NEGATIVE)
[2019-02-08 21:07] LABS: CHLAMYDIA DNA AMPLIFICATION NEGATIVE (NEGATIVE); GC DNA AMPLIFICATION NEGATIVE (NEGATIVE)
[2019-02-08] MEDS ORDERED: AZITHROMYCIN 250 MG TAB PO ONE (21:15)
[2019-02-08] MEDS ORDERED: LIDOCAINE 1% SDV 5 ML VIAL DILUENT ONE (21:15)
[2019-02-08] MEDS ORDERED: cefTRIAXone SOD 250 MG VIAL (J0696) IM ONE (21:15)
[2019-02-08 22:28] LABS: CHLAMYDIA DNA AMPLIFICATION NEGATIVE (NEGATIVE); GC DNA AMPLIFICATION NEGATIVE (NEGATIVE)
== END 2019-02-08 21:48 | disposition home or self-care (01) ==
LOC: M ED 18:59
DX: N73.9 Female pelvic inflammatory disease, unspecified (principal); B97.7 Papillomavirus as the cause of diseases classified elsewhere; E11.9 Type 2 diabetes mellitus without complications; J45.909 Unspecified asthma, uncomplicated; F41.9 Anxiety disorder, unspecified; F33.9 Major depressive disorder, recurrent, unspecified; Z86.69 Personal history of other diseases of the nervous system and sense organs; Z86.19 Personal history of other infectious and parasitic diseases; Z88.8 Allergy status to other drugs, medicaments and biological substances; Z91.02 Food additives allergy status
CPT/HCPCS: 80307; 81001; 84703; 87210; 87491; 87591; 96372; 99284; J0696

== ENCOUNTER 2019-02-13 13:12 | Emergency (ER) | payer OTHER ==
[~2019-02-13] VITALS: Ht 154.9 cm; Wt 47.7 kg
[~2019-02-13 13:12] MED LIST changes: +FOLI5CAP PO
[2019-02-13 14:35] LABS: HEMATOCRIT 42.3 % (36.0-47.0); HEMOGLOBIN 14.2 g/dl (12.0-15.5); MEAN CORPUSCULAR HEMOGLOBIN 30.1 pg (27.0-33.0); MEAN CORPUSCULAR HGB CONC 33.6 g/dl (32.0-36.5); MEAN CORPUSCULAR VOLUME 89.8 fl (80.0-96.0); PLATELET COUNT, AUTOMATED 172 10^3/uL (150-450); RED BLOOD COUNT 4.71 10^6/uL (4.00-5.40); WHITE BLOOD COUNT 13.6 10^3/uL (4.0-10.0)
[2019-02-13 14:39] LABS: HCG, SERUM QUALITATIVE NEGATIVE (NEGATIVE)
[2019-02-13 14:56] LABS: ACETAMINOPHEN LEVEL < 2.0 UG/ML (10.0-30.0); ALBUMIN 3.7 GM/DL (3.2-5.2); ALT/SGPT 152 U/L (12-78); BILIRUBIN,DIRECT 0.2 MG/DL (0.0-0.2); BILIRUBIN,TOTAL 0.4 MG/DL (0.2-1.0); BLOOD UREA NITROGEN 9 MG/DL (7-18); CALCIUM LEVEL 7.9 MG/DL (8.5-10.1); CARBON DIOXIDE LEVEL 25 MEQ/L (21-32); CHLORIDE LEVEL 112 MEQ/L (98-107); CREATININE FOR GFR 0.61 MG/DL (0.55-1.30); ETHYL ALCOHOL (ETHANOL) 0.361 % (0.000-0.010); GLOMERULAR FILTRATION RATE > 60.0 (>60); GLUCOSE, FASTING 88 MG/DL (70-100); POTASSIUM SERUM 3.6 MEQ/L (3.5-5.1); SALICYLATE LEVEL < 1.7 MG/DL (5.0-30.0); SODIUM LEVEL 145 MEQ/L (136-145); THYROID STIMULATING HORMONE 0.921 uIU/ML (0.358-3.740); TOTAL PROTEIN 7.7 GM/DL (6.4-8.2)
[2019-02-13 15:00] LABS: AMPHETAMINES LEVEL URINE NEGATIVE (NEGATIVE); BARBITURATES URINE NEGATIVE (NEGATIVE); BENZODIAZEPINES URINE NEGATIVE (NEGATIVE); CANNABINOIDS URINE POSITIVE (NEGATIVE); COCAINE METABOLITE URINE NEGATIVE (NEGATIVE); METHADONE URINE NEGATIVE (NEGATIVE); OPIATES URINE NEGATIVE (NEGATIVE); PHENCYCLIDINE URINE NEGATIVE (NEGATIVE)
[2019-02-13] MEDS ORDERED: ONDANSETRON 4 MG ORAL DISINTEGRATING TAB (Q0162 PER 1MG) As Ordered ONE (18:55)
[2019-02-13] MEDS ORDERED: ONDANSETRON 4 MG ORAL DISINTEGRATING TAB (Q0162 PER 1MG) PO ONE (19:00)
[2019-02-13] MEDS ORDERED: PROMETHAZINE INJ 25 MG/ML VIAL (J2550) IM ONE (19:30)
[2019-02-13] MEDS ORDERED: NICOTINE 21MG/24HR 1 EA TRANSDERMAL TD ONE (21:00)
[2019-02-14 01:50] VITALS: BP 115/69
[2019-02-14] MEDS ORDERED: OXAZ30CA2 PO (01:52)
== END 2019-02-14 02:14 | disposition home or self-care (01) ==
LOC: M ED 13:12
DX: F10.220 Alcohol dependence with intoxication, uncomplicated (principal); F32.9 Major depressive disorder, single episode, unspecified; F41.9 Anxiety disorder, unspecified; B19.20 Unspecified viral hepatitis C without hepatic coma; R56.9 Unspecified convulsions; J45.909 Unspecified asthma, uncomplicated; Z88.8 Allergy status to other drugs, medicaments and biological substances; Z91.018 Allergy to other foods
CPT/HCPCS: 36415; 80048; 80076; 80307; 84443; 84703; 85027; 96372; 99284; G0480; Q0162

== ENCOUNTER → 2019-02-20 | Outpatient (REF) | payer OTHER | LOC: M SFHCPLAZ 09:33 | PROVIDERS: ATTEND Nurse Practitioner Family | DX: F10.20 Alcohol dependence, uncomplicated (principal) ==